=== PATIENT | female | born 1965 | race Caucasian/White ===

== ENCOUNTER → 2016-07-20 | Outpatient (CLI) | payer BC ==
[~2016-07-20] MED LIST: /WARF5TA OR; /WARF5TA PO; ACET500C PO; ALLE25CA OR; AMBI10TA PO; BACT800T OR; CIPR500T19; CIPR500T19 OR; CIPR500T4 OR; CLAR5CHW OR; CLARITIN PO; COLA100C2 OR; COUMADIN; DICY20TA2; DIFL150T; DIFL150T OR; DIOV320T OR; DIOV80TA; DIOV80TA PO; ENOX40SY SC; FLAG500T; FLAG500T OR; FLUC10TA OR; FURO40TA2 OR; GUAIFENESIN SYRUP; HYDR25TA6 OR; JANUMET PO; LOPERAMIDE PO; LOVENOX SQ; PAXI20TA; PAXI20TA PO; PERC5TAB8 OR; PERC7.5T8 OR; SILVADENE TOP; VICO5TAB; VITA50TA12 OR; WOMENS ONE A DAY PO
[2016-07-20 11:58] LABS: BASO # 0.1 K/mm3 (0.0-0.2); EOS # 0.1 K/mm3 (0.0-0.50); EOS % 2.3 % (0.0-3.0); LARGE UNSTAINED CELL # 0.1 K/mm3 (0.0-0.4); LARGE UNSTAINED CELL % 1.7 % (0.0-4.0); LYMPH # 1.8 K/mm3 (1.5-4.5); LYMPH % 30.4 % (24.0-44.0); MEAN CORPUSCULAR HEMOGLOBIN 31.1 pg (27.0-33.0); MEAN CORPUSCULAR HGB CONC 34.6 g/dl (32.0-36.5); MEAN CORPUSCULAR VOLUME 90.1 fl (80.0-96.0); MONO # 0.3 K/mm3 (0.0-0.8); MONO % 5.8 % (0.0-5.0); NEUTROPHILS # 3.4 K/mm3 (1.8-7.7); NEUTROPHILS % 58.8 % (36.0-66.0); PLATELET COUNT, AUTOMATED 324 k/mm3 (150-450); RED CELL DISTRIBUTION WIDTH 12.4 % (11.5-14.5); WHITE BLOOD COUNT 5.8 K/mm3 (4.0-10.0)
[2016-07-20 12:27] LABS: ALBUMIN 3.6 GM/DL (3.2-5.2); ALKALINE PHOSPHATASE 103 U/L (45-117); ALT/SGPT 30 U/L (12-78); ANION GAP 4 MEQ/L (8-16); AST/SGOT 20 U/L (15-37); BILIRUBIN,TOTAL 0.3 MG/DL (0.2-1.0); BLOOD UREA NITROGEN 13 MG/DL (7-18); CALCIUM LEVEL 8.4 MG/DL (8.5-10.1); CARBON DIOXIDE LEVEL 32 MEQ/L (21-32); CHLORIDE LEVEL 106 MEQ/L (98-107); CREATININE FOR GFR 0.66 MG/DL (0.55-1.02); FERRITIN 16 NG/ML (8-252); GLOMERULAR FILTRATION RATE > 60.0 (>51); GLUCOSE, FASTING 87 MG/DL (70-105); MAGNESIUM LEVEL 2.1 MG/DL (1.8-2.4); PERCENT SATURATION 15.3 % (13.2-37.4); PHOSPHORUS LEVEL 3.8 MG/DL (2.5-4.9); POTASSIUM SERUM 4.2 MEQ/L (3.5-5.1); SODIUM LEVEL 142 MEQ/L (136-145); TOTAL IRON BINDING CAPACITY 417 UG/DL (250-450); TOTAL PROTEIN 7.2 GM/DL (6.4-8.2)
[2016-07-21 11:00] LABS: VITAMIN B12 LEVEL 1005 PG/ML (247-911)
[2016-07-22 11:44] LABS: PRETREATED FOLATE FOR RBCFOL 11.8 NG/ML
== END ==
LOC: M LAB 11:10
PROVIDERS: ATTEND Surgery
DX: K91.2 Postsurgical malabsorption, not elsewhere classified (principal); E55.9 Vitamin D deficiency, unspecified; Z98.84 Bariatric surgery status

== ENCOUNTER → 2016-07-20 | Outpatient (CLI) | payer BC ==
[2016-07-20 12:05] LABS: INR 1.01
[2016-07-20 12:06] LABS: MEAN CORPUSCULAR HEMOGLOBIN 31.5 pg (27.0-33.0); MEAN CORPUSCULAR HGB CONC 34.7 g/dl (32.0-36.5); MEAN CORPUSCULAR VOLUME 90.7 fl (80.0-96.0); RED CELL DISTRIBUTION WIDTH 12.4 % (11.5-14.5); WHITE BLOOD COUNT 5.6 K/mm3 (4.0-10.0)
--- NOTE | 2016-07-20 12:13 | REP ---
PA and lateral chest: Comparison is 07/12/2014. The lung santos are clear. The cardiac size is normal The faith, mediastinum, and bony thorax are unremarkable except for mild scoliosis convex right, unchanged. Impression: Essentially negative PA and lateral chest. Signed by Roger Gamble MD 07/20/2016 12:05 P
[2016-07-20 12:29] LABS: ALKALINE PHOSPHATASE 100 U/L (45-117); ALT/SGPT 28 U/L (12-78); ANION GAP 5 MEQ/L (8-16); AST/SGOT 21 U/L (15-37); BILIRUBIN,TOTAL 0.3 MG/DL (0.2-1.0); BLOOD UREA NITROGEN 14 MG/DL (7-18); CALCIUM LEVEL 8.3 MG/DL (8.5-10.1); CARBON DIOXIDE LEVEL 31 MEQ/L (21-32); CHLORIDE LEVEL 105 MEQ/L (98-107); CHOLESTEROL LEVEL 151 MG/DL (<200); CREATININE FOR GFR 0.64 MG/DL (0.55-1.02); GLOMERULAR FILTRATION RATE > 60.0 (>51); GLUCOSE, FASTING 89 MG/DL (70-105); POTASSIUM SERUM 4.4 MEQ/L (3.5-5.1); SODIUM LEVEL 141 MEQ/L (136-145); TRIGLYCERIDES LEVEL 77 MG/DL (<150)
[2016-07-20 12:30] LABS: ALBUMIN 3.5 GM/DL (3.2-5.2); PERCENT SATURATION 16.3 % (13.2-37.4); THYROXINE (T4) 10.8 UG/DL (4.5-12.0); TOTAL IRON BINDING CAPACITY 406 UG/DL (250-450)
--- NOTE | 2016-07-20 16:10 | ECGEPIP ---
Stationary ECG Study [facility] Test Date: 2016-07-20 Pat Name: CESAR CALVILLO Department: Room: - Gender: F Nuclear Medicine Technician: JUAQUIN : 1965 Requested By: Crista Orozco Order Number: [id number] Reading MD: Hugo Bardales Measurements Intervals [place] Rate: 52 P: 23 DE: 197 QRS: 31 QRSD: 94 T: 44 QT: 445 QTc: 416 Interpretive Statements SINUS BRADYCARDIA Electronically Signed On 07-20-2016 16:09:57 EDT by Hugo Bardales
[2016-07-21 10:57] LABS: VITAMIN B12 LEVEL 1077 PG/ML (247-911)
== END ==
LOC: M LAB 11:14
PROVIDERS: ATTEND Family Medicine
DX: D64.9 Anemia, unspecified (principal); R53.83 Other fatigue; E03.9 Hypothyroidism, unspecified

== ENCOUNTER 2016-09-11 08:01 | Emergency (ER) | payer BC ==
[~2016-09-11] VITALS: Ht 167.6 cm; Wt 81.8 kg
[2016-09-11] MEDS ORDERED: VITA200038 PO (08:15)
[2016-09-11] MEDS ORDERED: ELIQ5TAB PO (08:15)
--- NOTE | 2016-09-11 09:38 | REP ---
LUMBAR SPINE, FIVE VIEWS: HISTORY: Trauma. There is no acute fracture or subluxation. The L3-4 through L5-S1 intervertebral discs are decreased in height consistent with disc degeneration. Osteophytes are present on L3 through L5. The facet joints are normal in appearance. IMPRESSION: Degenerative change as described above. Signed by Tian Machuca MD 09/11/2016 09:39 A
[2016-09-11] MEDS ORDERED: OXYC1TAB23 PO (10:40)
[2016-09-11] MEDS ORDERED: ZANA4TAB PO (10:41)
[2016-09-11] MEDS ORDERED: PERCOCET 5MG/325MG TAB PO ONE (10:45)
[2016-09-11 10:50] VITALS: BP 124/70
== END 2016-09-11 10:57 | disposition home or self-care (01) ==
LOC: M ED 08:59
DX: M47.816 Spondylosis without myelopathy or radiculopathy, lumbar region (principal); F41.9 Anxiety disorder, unspecified; F33.9 Major depressive disorder, recurrent, unspecified; D64.9 Anemia, unspecified; K44.9 Diaphragmatic hernia without obstruction or gangrene; Z98.84 Bariatric surgery status; Z79.899 Other long term (current) drug therapy; Z79.01 Long term (current) use of anticoagulants; Z88.2 Allergy status to sulfonamides; Z88.8 Allergy status to other drugs, medicaments and biological substances
CPT/HCPCS: 72110; 96372; 99283; J3360

== ENCOUNTER → 2017-08-03 | Outpatient (CLI) | payer BC ==
[2017-08-03 17:45] LABS: TOTAL 25(OH) VITAMIN D 17.8 NG/ML (30.0-100.0); TOTAL T3 100.9 NG/DL (60.0-181.0); VITAMIN B12 LEVEL 463 PG/ML (247-911)
[2017-08-03 17:55] LABS: ESTIMATED AVERAGE GLUCOSE 111 MG/DL (60-110); HEMOGLOBIN A1c 5.5 %
[2017-08-03 18:06] LABS: ALBUMIN 3.9 GM/DL (3.2-5.2); ALBUMIN/GLOBULIN RATIO 1.05 (1.00-1.93); ALKALINE PHOSPHATASE 105 U/L (45-117); ALT/SGPT 34 U/L (12-78); ANION GAP 5 MEQ/L (8-16); AST/SGOT 25 U/L (7-37); BILIRUBIN,TOTAL 0.5 MG/DL (0.2-1.0); BLOOD UREA NITROGEN 12 MG/DL (7-18); CALCIUM LEVEL 9.2 MG/DL (8.5-10.1); CARBON DIOXIDE LEVEL 32 MEQ/L (21-32); CHLORIDE LEVEL 106 MEQ/L (98-107); CHOLESTEROL LEVEL 171 MG/DL (<200); CHOLESTEROL RISK RATIO 3.352 (<5); GLOMERULAR FILTRATION RATE > 60.0 (>51); GLUCOSE, FASTING 88 MG/DL (70-100); HDL CHOLESTEROL 51 MG/DL (>40); IRON (FE) 66 UG/DL (50-170); LDL CHOLESTEROL 101.4 MG/DL (<100); NON-HDL-C 120 MG/DL; PERCENT SATURATION 16.3 % (13.2-45.0); POTASSIUM SERUM 4.2 MEQ/L (3.5-5.1); SODIUM LEVEL 143 MEQ/L (136-145); THYROID STIMULATING HORMONE 0.882 uIU/ML (0.358-3.740); THYROXINE (T4) 12.5 UG/DL (4.5-12.0); TOTAL IRON BINDING CAPACITY 406 UG/DL (250-450); TOTAL PROTEIN 7.6 GM/DL (6.4-8.2); TRIGLYCERIDES LEVEL 93 MG/DL (<150)
[2017-08-03 18:43] LABS: HEMATOCRIT 39.6 % (36.0-47.0); HEMOGLOBIN 13.2 g/dl (12.0-15.5); MEAN CORPUSCULAR HEMOGLOBIN 29.6 pg (27.0-33.0); MEAN CORPUSCULAR HGB CONC 33.3 g/dl (32.0-36.5); MEAN CORPUSCULAR VOLUME 88.8 fl (80.0-96.0); PLATELET COUNT, AUTOMATED 326 10^3/uL (150-450); RED BLOOD COUNT 4.46 10^6/uL (4.00-5.40); RED CELL DISTRIBUTION WIDTH 12.4 % (11.5-14.5); WHITE BLOOD COUNT 7.4 10^3/uL (4.0-10.0)
[2017-08-03 18:50] LABS: INR 0.96; PROTHROMBIN TIME 12.9 SECONDS (12.4-14.5)
== END ==
LOC: M LAB 16:06
DX: I10 Essential (primary) hypertension (principal); E11.9 Type 2 diabetes mellitus without complications; R53.83 Other fatigue; E03.9 Hypothyroidism, unspecified
CPT/HCPCS: 83550

== ENCOUNTER → 2017-11-18 | Outpatient (CLI) | payer BC | LOC: M RAD 14:57 | DX: N85.8 Other specified noninflammatory disorders of uterus (principal) | CPT/HCPCS: 76856 ==

== ENCOUNTER 2019-03-20 13:16 | Emergency (ER) | payer OTHER ==
[~2019-03-20] VITALS: Ht 165.1 cm; Wt 97.7 kg
[~2019-03-20 13:16] MED LIST changes: -/WARF5TA OR; -/WARF5TA PO; +COUM1TAB17 OR; +COUM1TAB17 PO; +ELIQ5TAB PO; -ENOX40SY SC; +LOVE1INJ SC; +OXYC1TAB23 PO; +VITA200038 PO; +ZANA4TAB PO
[2019-03-20] MEDS ORDERED: MORPHINE 4 MG/ML 1ML VIAL/SYRINGE (J2270) IV ONE ×2 (13:45→15:00)
[2019-03-20 13:50] LABS: BASO # 0.1 10^3/uL (0.0-0.2); BASO % 1.1 % (0.0-1.0); EOS # 0.1 10^3/uL (0.0-0.5); EOS % 1.3 % (0.0-3.0); HEMATOCRIT 42.2 % (36.0-47.0); HEMOGLOBIN 13.6 g/dl (12.0-15.5); LYMPH # 1.8 10^3/uL (1.5-5.0); LYMPH % 24.2 % (24.0-44.0); MEAN CORPUSCULAR HEMOGLOBIN 29.6 pg (27.0-33.0); MEAN CORPUSCULAR HGB CONC 32.2 g/dl (32.0-36.5); MEAN CORPUSCULAR VOLUME 91.7 fl (80.0-96.0); MONO # 0.6 10^3/uL (0.0-0.8); MONO % 8.2 % (0.0-5.0); NEUTROPHILS # 4.8 10^3/uL (1.5-8.5); NEUTROPHILS % 65.1 % (36.0-66.0); PLATELET COUNT, AUTOMATED 356 10^3/uL (150-450); WHITE BLOOD COUNT 7.4 10^3/uL (4.0-10.0)
[2019-03-20 14:04] LABS: INR 1.1; PROTHROMBIN TIME 13.9 SECONDS (11.8-14.0)
[2019-03-20 14:05] LABS: PARTIAL THROMBOPLASTIN TIME 27.5 SECONDS (25.0-38.4)
[2019-03-20 14:23] LABS: ALBUMIN 3.7 GM/DL (3.2-5.2); ALT/SGPT 28 U/L (12-78); BILIRUBIN,DIRECT < 0.1 MG/DL (0.0-0.2); BILIRUBIN,TOTAL 0.2 MG/DL (0.2-1.0); BLOOD UREA NITROGEN 15 MG/DL (7-18); CALCIUM LEVEL 8.6 MG/DL (8.5-10.1); CARBON DIOXIDE LEVEL 28 MEQ/L (21-32); CHLORIDE LEVEL 107 MEQ/L (98-107); CREATININE FOR GFR 0.65 MG/DL (0.55-1.30); GLOMERULAR FILTRATION RATE > 60.0 (>51); GLUCOSE, FASTING 93 MG/DL (70-100); LIPASE 58 U/L (73-393); SODIUM LEVEL 141 MEQ/L (136-145); TOTAL PROTEIN 7.4 GM/DL (6.4-8.2)
[2019-03-20 14:26] LABS: CK-MB VALUE MASS < 1.0 NG/ML (<3.6); CPK CREATINE PHOSPHOKINASE 54 U/L (26-192); MB/CK RELATIVE INDEX 1.85 (< OR =4); TROPONIN I < 0.02 NG/ML (< 0.10)
[2019-03-20] MEDS ORDERED: ISOVUE-370 76% 100ML VIAL (Q9967) As Ordered ONE (14:41)
[2019-03-20] MEDS ORDERED: PERC5TAB12 PO (15:44)
[2019-03-20 16:01] VITALS: BP 147/71
--- NOTE | 2019-03-21 08:27 | REP ---
REASON: Right sided trauma. PRIORS: Multiple, the latest 02/14/2014. The mediastinum and pulmonary faith are within normal limits. There are no pleural or pericardial effusions. Bone window technique throughout the exam shows the osseous structures to be within normal limits. Spinal degenerative changes are noted. Evaluation of the lung santos shows no new abnormal nodules, masses, or opacities. IMPRESSION:CT examination of the chest is within normal limits. Electronically Signed by Priyank Yeager DO 03/25/2019 04:30 P
--- NOTE | 2019-03-21 08:31 | ECGEPIP ---
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
--- NOTE | 2019-03-21 08:50 | REP ---
REASON FOR EXAM: Right upper quadrant pain after trauma. COMPARISON: Multiple, the latest 08/08/2015. CONTRAST: 100 mL Isovue 370. The liver and spleen are again seen to be within normal limits. There is cholelithiasis status quo. The pancreas, adrenal glands, and kidneys are again seen to be within normal limits. The abdominal aorta and para-aortic regions are within normal limits. The bowel loops and their mesenteries are within normal limits. There is no free fluid or free air. Status post left upper quadrant operative procedure likely previous bariatric surgery. CT PELVIS: The bowel loops and their mesenteries are within normal limits. There is no mass or adenopathy. There is no free fluid or free air. Bone window technique throughout the exam shows the osseous structures to be within normal limits. IMPRESSION: CT findings are within normal limits. Electronically Signed by Priyank Yeager DO 03/25/2019 04:32 P
== END 2019-03-20 16:06 | disposition home or self-care (01) ==
LOC: M ED 13:16
DX: S30.1XXA Contusion of abdominal wall, initial encounter (principal); S20.219A Contusion of unspecified front wall of thorax, initial encounter; W10.9XXA Fall (on) (from) unspecified stairs and steps, initial encounter; Y92.9 Unspecified place or not applicable; Y93.9 Activity, unspecified; Y99.0 Civilian activity done for income or pay; R00.1 Bradycardia, unspecified; E11.9 Type 2 diabetes mellitus without complications; E66.9 Obesity, unspecified; Z98.84 Bariatric surgery status; Z86.718 Personal history of other venous thrombosis and embolism; Z88.1 Allergy status to other antibiotic agents; Z88.2 Allergy status to sulfonamides
CPT/HCPCS: 71260; 74177; 80048; 80076; 82550; 82553; 83690; 84484; 85025; 85610; 85730; 93005; 93041; 96374; 96376; 99284; J2270; Q9967

== ENCOUNTER 2019-09-13 13:29 | Emergency (ER) | payer OTHER ==
[~2019-09-13] VITALS: Ht 167.6 cm; Wt 103.4 kg
[~2019-09-13 13:29] MED LIST changes: +PERC5TAB12 PO
[2019-09-13] MEDS ORDERED: GABA600T4 OR (13:40)
[2019-09-13] MEDS ORDERED: TRIA37.53 OR (13:40)
[2019-09-13] MEDS ORDERED: AMPICILLIN SOD/SULBACTAM SOD 3 GM in D5W MINI-BAG PLUS 100 ML IV ONE (14:00)
--- NOTE | 2019-09-13 14:14 | REP ---
Clinical: Trauma. Cat bite. Rule out foreign body. Technique: AP, lateral views right hand . Findings: The osseous structures and joint spaces are intact and normal. There is no evidence for acute fracture or dislocation. Surrounding soft tissues are unremarkable. No subcutaneous emphysema or radiodense foreign body. Impression: No subcutaneous emphysema or foreign body. Electronically Signed by Andrew Ospina MD 09/13/2019 02:06 P
[2019-09-13] MEDS ORDERED: BOOSTRIX/ADACEL VACCINE (DIPHTH/PERTUSS/ACELL/TETANUS) 0.5ML SYR IM ONE (14:15)
[2019-09-13 14:20] LABS: BASO # 0.1 10^3/uL (0.0-0.2); BASO % 0.9 % (0.0-1.0); EOS # 0.1 10^3/uL (0.0-0.5); EOS % 1.4 % (0.0-3.0); HEMATOCRIT 40.4 % (36.0-47.0); HEMOGLOBIN 13.4 g/dl (12.0-15.5); LYMPH # 2.1 10^3/uL (1.5-5.0); LYMPH % 27.1 % (24.0-44.0); MEAN CORPUSCULAR HEMOGLOBIN 30.5 pg (27.0-33.0); MEAN CORPUSCULAR HGB CONC 33.2 g/dl (32.0-36.5); MONO # 0.7 10^3/uL (0.0-0.8); MONO % 8.7 % (0.0-5.0); NEUTROPHILS # 4.8 10^3/uL (1.5-8.5); NEUTROPHILS % 61.5 % (36.0-66.0); PLATELET COUNT, AUTOMATED 330 10^3/uL (150-450); RED BLOOD COUNT 4.39 10^6/uL (4.00-5.40); WHITE BLOOD COUNT 7.7 10^3/uL (4.0-10.0)
[2019-09-13] MEDS ORDERED: diphenhydrAMINE 50MG/ML VIAL (J1200) As Ordered ONE (14:32)
[2019-09-13] MEDS ORDERED: diphenhydrAMINE 50MG/ML VIAL (J1200) IV ONE (14:45)
[2019-09-13 14:55] LABS: ERYTHROCYTE SEDIMENTATION RATE 44 mm/hr (0-30)
[2019-09-13] MEDS ORDERED: CIPROFLOXACIN 400 MG in IV 1 EA IV ONE (15:30)
[2019-09-13] MEDS ORDERED: metroNIDAZOLE (FLAGYL) 500 MG TAB PO ONE (15:30)
[2019-09-13] MEDS ORDERED: FLAG500T PO (16:40)
[2019-09-13] MEDS ORDERED: CIPR-249 PO (16:40)
[2019-09-13 16:52] VITALS: BP 129/82
== END 2019-09-13 16:52 | disposition home or self-care (01) ==
LOC: M ED 13:29
DX: S61.431A Puncture wound without foreign body of right hand, initial encounter (principal); W55.01XA Bitten by cat, initial encounter; Y92.018 Other place in single-family (private) house as the place of occurrence of the external cause; Z79.899 Other long term (current) drug therapy; Z79.01 Long term (current) use of anticoagulants; Z88.1 Allergy status to other antibiotic agents; Z88.2 Allergy status to sulfonamides; Z88.8 Allergy status to other drugs, medicaments and biological substances
CPT/HCPCS: 73120; 80047; 85025; 85652; 86140; 90471; 90715; 96365; 96367; 96375; 99284; J0744; J1200

== ENCOUNTER → 2019-10-28 | Outpatient (CLI) | payer OTHER ==
[~2019-10-28] MED LIST changes: +CIPR-249 PO; +FLAG500T PO; +GABA600T4 OR; +TRIA37.53 OR
--- NOTE | 2019-11-21 08:12 | REPMRS ---
Patient History The patient states she has not had a clinical breast exam in over a year. Family history of breast cancer in maternal aunt, breast cancer in maternal aunt, breast cancer in maternal aunt. No Hormone Replacement Therapy Digital Woman Screen Mammo: October 28, 2019 - Exam #: [id number] Bilateral CC and MLO view(s) were taken. Technologist: Vania Purdy, Technologist Prior study comparison: October 19, 2018, bilateral digital woman screen mammo performed at [facility]. August 13, 2015, digital woman screen mammo performed at [facility]. September 07, 2009, bilateral screening mammogram performed at [facility]. FINDINGS: There are scattered fibroglandular densities. The Volpara volumetric breast density category is:B. There has been no change in the appearance of the mammogram from the prior studies. There is a mild amount of scattered fibroglandular density which is fairly symmetric. There is no interval development of dominant mass, architectural distortion, or grouped microcalcification suggestive of malignancy. 3-D tomosynthesis shows no additional findings. Report was delayed due to a protracted computer network disruption experienced by this facility. Assessment: BI-RADS/ACR category 1 mammogram. Negative Mammogram. Recommendation Routine screening mammogram of both breasts in 1 year (for women over age 40). This patient's Lifetime Breast Cancer Risk is estimated at 13.1 %. This mammogram was interpreted with the aid of an FDA-approved computer-aided dectection system. Electronically Signed By: Marcos Giraldo MD 11/21/19 [id number]
== END ==
LOC: M WHC 12:09
PROVIDERS: ATTEND Family Medicine
DX: Z12.31 Encounter for screening mammogram for malignant neoplasm of breast (principal)

== ENCOUNTER → 2019-12-27 | Outpatient (CLI) | payer OTHER ==
[2019-12-27 13:58] LABS: HEMATOCRIT 39.9 % (36.0-47.0); MEAN CORPUSCULAR HEMOGLOBIN 29.1 pg (27.0-33.0); MEAN CORPUSCULAR HGB CONC 32.6 g/dl (32.0-36.5); MEAN CORPUSCULAR VOLUME 89.5 fl (80.0-96.0); PLATELET COUNT, AUTOMATED 344 10^3/uL (150-450); RED BLOOD COUNT 4.46 10^6/uL (4.00-5.40); WHITE BLOOD COUNT 6.2 10^3/uL (4.0-10.0)
[2019-12-27 14:19] LABS: HEMOGLOBIN A1c 5.6 %
[2019-12-27 14:31] LABS: ALBUMIN 3.7 GM/DL (3.2-5.2); BILIRUBIN,TOTAL 0.4 MG/DL (0.2-1.0); BLOOD UREA NITROGEN 18 MG/DL (7-18); CALCIUM LEVEL 8.9 MG/DL (8.5-10.1); CARBON DIOXIDE LEVEL 30 MEQ/L (21-32); CHLORIDE LEVEL 107 MEQ/L (98-107); CHOLESTEROL LEVEL 164 MG/DL (<200); CHOLESTEROL RISK RATIO 3.416 (<5); GLOMERULAR FILTRATION RATE > 60.0 (>51); GLUCOSE, FASTING 88 MG/DL (70-100); HDL CHOLESTEROL 48 MG/DL (>40); IRON (FE) 76 UG/DL (50-170); LDL CHOLESTEROL 99 MG/DL (<100); NON-HDL-C 116 MG/DL; PERCENT SATURATION 18.6 % (13.2-45.0); POTASSIUM SERUM 4.1 MEQ/L (3.5-5.1); SODIUM LEVEL 140 MEQ/L (136-145); THYROID STIMULATING HORMONE 0.927 uIU/ML (0.358-3.740); THYROXINE (T4) 11.9 UG/DL (4.5-12.0); TOTAL IRON BINDING CAPACITY 409 UG/DL (250-450); TOTAL PROTEIN 7.2 GM/DL (6.4-8.2); TRIGLYCERIDES LEVEL 84 MG/DL (<150)
[2019-12-27 18:00] LABS: ALT/SGPT 36 U/L (12-78)
[2019-12-28 13:57] LABS: TOTAL 25(OH) VITAMIN D 28.4 NG/ML (30.0-100.0)
[2019-12-28 13:58] LABS: TOTAL T3 108.3 NG/DL (60.0-181.0); VITAMIN B12 LEVEL 443 PG/ML
[2019-12-28 14:29] LABS: FOLATE 11.1 NG/ML
== END ==
LOC: M LAB 12:54
PROVIDERS: ATTEND Family Medicine
DX: E03.9 Hypothyroidism, unspecified (principal); R53.83 Other fatigue; D64.9 Anemia, unspecified

== ENCOUNTER 2020-03-04 08:21 | Emergency (ER) | payer OTHER ==
[~2020-03-04] VITALS: Ht 165.1 cm; Wt 100.0 kg
[2020-03-04] MEDS ORDERED: CEPH500C (08:32)
[2020-03-04] MEDS ORDERED: DICY20TA11 (08:32)
[2020-03-04 09:32] LABS: BASO # 0.1 10^3/uL (0.0-0.2); BASO % 0.8 % (0.0-1.0); EOS # 0.1 10^3/uL (0.0-0.5); EOS % 1.7 % (0.0-3.0); HEMATOCRIT 38.9 % (36.0-47.0); HEMOGLOBIN 12.5 g/dl (12.0-15.5); LYMPH # 1.7 10^3/uL (1.5-5.0); LYMPH % 28.5 % (24.0-44.0); MEAN CORPUSCULAR HEMOGLOBIN 28.7 pg (27.0-33.0); MEAN CORPUSCULAR HGB CONC 32.1 g/dl (32.0-36.5); MEAN CORPUSCULAR VOLUME 89.4 fl (80.0-96.0); MONO # 0.6 10^3/uL (0.0-0.8); MONO % 9.1 % (0.0-5.0); NEUTROPHILS # 3.6 10^3/uL (1.5-8.5); NEUTROPHILS % 59.6 % (36.0-66.0); PLATELET COUNT, AUTOMATED 273 10^3/uL (150-450); RED BLOOD COUNT 4.35 10^6/uL (4.00-5.40)
[2020-03-04 09:44] LABS: INR 1.12; PROTHROMBIN TIME 14.7 SECONDS (12.5-14.3)
[2020-03-04 09:45] LABS: PARTIAL THROMBOPLASTIN TIME 31.6 SECONDS (24.2-38.5)
[2020-03-04 09:54] LABS: ERYTHROCYTE SEDIMENTATION RATE 22 mm/hr (0-30)
[2020-03-04 09:58] LABS: ALBUMIN 3.6 GM/DL (3.2-5.2); ALT/SGPT 36 U/L (12-78); BILIRUBIN,DIRECT 0.1 MG/DL (0.0-0.2); BILIRUBIN,TOTAL 0.3 MG/DL (0.2-1.0); BLOOD UREA NITROGEN 13 MG/DL (7-18); CALCIUM LEVEL 8.7 MG/DL (8.5-10.1); CARBON DIOXIDE LEVEL 30 MEQ/L (21-32); CHLORIDE LEVEL 109 MEQ/L (98-107); CREATININE FOR GFR 0.72 MG/DL (0.55-1.30); GLOMERULAR FILTRATION RATE > 60.0 (>51); GLUCOSE, FASTING 95 MG/DL (70-100); RHEUMATOID FACTOR QUANT < 10.0 IU/ML (<15.0); SODIUM LEVEL 142 MEQ/L (136-145)
[2020-03-04] MEDS ORDERED: CLIN150C14 PO (11:23)
[2020-03-04] MEDS ORDERED: CEFD1CAP8 PO (11:23)
[2020-03-04] MEDS ORDERED: CLINDAMYCIN 150MG CAPSULE PO ONE (11:30)
[2020-03-04] MEDS ORDERED: CEFDINIR 300 MG CAP (OMNICEF) PO ONE (11:30)
[2020-03-04 11:31] VITALS: BP 162/84
[2020-03-06 16:13] LABS: ANTINUCLEAR ANTIBODIES DIRECT Negative (Negative)
[2020-03-07 11:32] LABS: PTT LUPUS TYPE ANTICOAG SCREEN 1.3 (0-1.2)
[2020-03-07 11:40] LABS: DRVV CONFIRM 56.7 SEC; LUPUS CONFIRM RATIO 1.5
[2020-03-07 11:47] LABS: NORMALIZED RATIO 0.87 (0.00-1.20)
== END 2020-03-04 11:37 | disposition home or self-care (01) ==
LOC: M ED 08:21
DX: L30.9 Dermatitis, unspecified (principal); L03.213 Periorbital cellulitis; E11.9 Type 2 diabetes mellitus without complications; F33.9 Major depressive disorder, recurrent, unspecified; F41.9 Anxiety disorder, unspecified; Z98.84 Bariatric surgery status; Z79.899 Other long term (current) drug therapy; Z79.01 Long term (current) use of anticoagulants; Z88.0 Allergy status to penicillin; Z88.1 Allergy status to other antibiotic agents; Z88.2 Allergy status to sulfonamides; Z88.8 Allergy status to other drugs, medicaments and biological substances

== ENCOUNTER → 2020-04-18 | Outpatient (CLI) | payer OTHER ==
[~2020-04-18] MED LIST changes: +ACET1TAB16 PO; +CEFD1CAP8 PO; +CEPH500C; +CLIN150C15 PO; +DICY20TA11; +VITA50005
[2020-04-18 15:40] LABS: IMMUNOGLOBULIN E 60.6 IU/ML (<100)
[2020-04-21 16:09] LABS: ALPHA 1 ANTITRYPSIN 110 mg/dL (101-187); D001-IgE D pteronyssinus <0.10 kU/L (Class 0); E001-IgE Cat Epith/Dander < 0.10 kU/L (Class 0); E003-IGE HORSE EPITHELIA/DAND <0.10 kU/L (Class 0); E004-IGE COW DANDER <0.10 kU/L (Class 0); E005-IgE Dog Dander < 0.10 kU/L (Class 0); F002-IgE Milk < 0.10 kU/L (Class 0); F004-IgE Wheat < 0.10 kU/L (Class 0); F013-IgE Peanut < 0.10 kU/L (Class 0); F014-IgE Soybean < 0.10 kU/L (Class 0); F026-IgE Pork < 0.10 kU/L (Class 0); F027-IgE Beef < 0.10 kU/L (Class 0); F245-IgE Egg, Whole < 0.10 kU/L (Class 0); FX02-IgE Food Mix (Sea Foods) Negative (.); G002-IgE Bermuda Grass < 0.10 kU/L (Class 0); G008-IgE Kentucky Bluegrass < 0.10 kU/L (Class 0); M001-IgE Penicillium chrysogen < 0.10 kU/L (Class 0); M002 IgE Cladosporium herbaru < 0.10 kU/L (Class 0); M003 IgE Aspergillus fumigatu < 0.10 kU/L (Class 0); M006-IgE Alternaria alternata < 0.10 kU/L (Class 0); T001-IgE Maple/Box Elder < 0.10 kU/L (Class 0); T003-IgE Common Silver Birch < 0.10 kU/L (Class 0); T006-IgE Cedar, Mountain < 0.10 kU/L (Class 0); T007-IgE Oak, White < 0.10 kU/L (Class 0); T008-IgE Elm, American < 0.10 kU/L (Class 0); T015-IgE Ash, White < 0.10 kU/L (Class 0); T041-IgE Hickory, White < 0.10 kU/L (Class 0); T070-IgE White Mulberry < 0.10 kU/L (Class 0); W001-IgE Ragweed, Short < 0.10 kU/L (Class 0); W009-IgE Plantain, English < 0.10 kU/L (Class 0); W014-IgE Pigweed, Rough < 0.10 kU/L (Class 0); W018-IgE Sheep Sorrel < 0.10 kU/L (Class 0)
== END ==
LOC: M LAB 11:05
PROVIDERS: ATTEND Nurse Practitioner Family
DX: J30.2 Other seasonal allergic rhinitis (principal)

== ENCOUNTER 2020-04-24 17:24 | Emergency (ER) | payer OTHER ==
[~2020-04-24] VITALS: Ht 167.6 cm; Wt 105.2 kg
[~2020-04-24 17:24] MED LIST changes: -ACET1TAB16 PO; -VITA50005
--- NOTE | 2020-04-24 18:54 | REPVR ---
PROCEDURE INFORMATION: Exam: US Duplex Right Lower Extremity Veins, Limited Exam date and time: 04/24/2020 6:33 PM Age: 54 years old Clinical indication: Pain; Leg, lower; Right; Additional info: R lower ext swelling, pain, HX of dvt on eliquis TECHNIQUE: Imaging protocol: Real-time Duplex ultrasound of the Right Lower Extremity with 2-D villavicencio scale, color Doppler flow and spectral waveform analysis with image documentation. Limited exam was focused on the right lower extremity veins. COMPARISON: US Duplex, Ext,LOWER veins,unilat 08/25/2013 1:15 PM FINDINGS: Right deep veins: There is a linear area of echogenic thrombus anterior wall of the right common femoral vein consistent with chronic thrombus. There is venous return through this segment. There is a linear echogenic band within the right popliteal vein consistent with an adhesion from chronic thrombus. There is however good venous return. Soft tissues: There is soft tissue swelling. Other findings: Proximal, mid and distal femoral vein demonstrates compressibility a good venous return. 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 No evidence of acute DVT. Electronically signed by: Garret Carcamo On 04/24/2020 18:54:04 PM
[2020-04-24 19:11] VITALS: BP 142/88
[2020-04-25] MEDS ORDERED: VITA50005 (21:23)
== END 2020-04-24 19:13 | disposition home or self-care (01) ==
LOC: M ED 17:24
DX: I82.501 Chronic embolism and thrombosis of unspecified deep veins of right lower extremity (principal); I83.811 Varicose veins of right lower extremity with pain; E11.9 Type 2 diabetes mellitus without complications; Z79.01 Long term (current) use of anticoagulants; Z88.2 Allergy status to sulfonamides; Z88.0 Allergy status to penicillin; Z88.1 Allergy status to other antibiotic agents; Z98.0 Intestinal bypass and anastomosis status; Z98.890 Other specified postprocedural states

== ENCOUNTER 2020-04-25 21:14 | Emergency (ER) | payer OTHER ==
[~2020-04-25] VITALS: Ht 167.6 cm; Wt 102.2 kg
--- OUTSIDE RECORDS SUMMARY | 2020-04-25 21:21 | CCD ---
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 Name Role Phone Tashia Freeman MD Unavailable Unavailable Lydia, Tashia Christine MD Unavailable Unavailable Lydia, Tashia Christine MD Unavailable Unavailable Lydia, Tashia Christine MD Unavailable Unavailable Lydia, Tashia Christine MD Unavailable Unavailable Lydia, Tashia Christine MD Unavailable Unavailable Lydia, Tashia Christine MD Unavailable Unavailable Lydia, Tashia Christine MD Unavailable Unavailable Lydia, Tashia Christine MD Unavailable Unavailable Lydia, Tashia Christine MD Unavailable Unavailable Lydia, Tashia Christine MD Unavailable Unavailable Lydia, Tashia Christine MD Unavailable Unavailable Lydia, Tashia Christine MD Unavailable Unavailable Lydia, Tashia Christine MD Unavailable Unavailable Lydia, Tashia Christine MD Unavailable Unavailable Lydia, Tashia Christine MD Unavailable Unavailable Lydia, Tashia Christine MD Unavailable Unavailable Lydia, Tashia Christine MD Unavailable Unavailable Lydia, Tashia Christine MD Unavailable Unavailable Lydia, Tashia Christine MD Unavailable Unavailable Lydia, Tashia Christine MD Unavailable Unavailable Lydia, A Emmett MD Unavailable Unavailable Lydia, A Emmett MD Unavailable Unavailable Lydia, A Emmett MD Unavailable Unavailable Lydia, A Emmett MD Unavailable Unavailable Lydia, A Emmett MD Unavailable Unavailable Lydia, A Emmett MD Unavailable Unavailable Lydia, A Emmett MD Unavailable Unavailable Lydia, A Emmett MD Unavailable Unavailable Lydia, A Emmett MD Unavailable Unavailable Lydia, A Emmett MD Unavailable Unavailable Lydia, A Emmett MD Unavailable Unavailable Lydia, A Emmett MD Unavailable Unavailable Lydia, A Emmett MD Unavailable Unavailable Lydia, A Emmett MD Unavailable Unavailable Lydia, A Emmett MD Unavailable Unavailable Lydia, A Emmett MD Unavailable Unavailable Lydia, A Emmett MD Unavailable Unavailable Lydia, A Emmett MD Unavailable Unavailable Lydia, A Emmett MD Unavailable Unavailable Lydia, A Emmett MD Unavailable Unavailable Lydia, A Emmett MD Unavailable Unavailable Lydia, A Emmett MD Unavailable Unavailable Lydia, A Emmett MD Unavailable Unavailable Lydia, A Emmett MD Unavailable Unavailable Lydia, A Emmett MD Unavailable Unavailable Lydia, A Emmett MD Unavailable Unavailable Lydai, A Emmett MD Unavailable Unavailable Lydia, A Emmett MD Unavailable Unavailable Lydia, A Emmett MD Unavailable Unavailable Lydia, A Emmett MD Unavailable Unavailable Lydia, A Emmett MD Unavailable Unavailable Lydia, A Emmett MD Unavailable Unavailable Ldyia, A Emmett MD Unavailable Unavailable Lydia, A Emmett MD Unavailable Unavailable Lydia, A Emmett MD Unavailable Unavailable Lydia, A Emmett MD Unavailable Unavailable Lydia, A Emmett MD Unavailable Unavailable Lydia, A Emmett MD Unavailable Unavailable Lydia, A Emmett MD Unavailable Unavailable Lydia, A Emmett MD Unavailable Unavailable Lydia, A Emmett MD Unavailable Unavailable Lydia, A Emmett MD Unavailable Unavailable Lydia, A Emmett MD Unavailable Unavailable Lydia, A Emmett MD Unavailable Unavailable Lydia, A Emmett MD Unavailable Unavailable Lydia, A Emmett MD Unavailable Unavailable Lydia, A Emmett MD Unavailable Unavailable Lydia, A Emmett MD Unavailable Unavailable Lydia, A Emmett MD Unavailable Unavailable Lydia, A Emmett MD Unavailable Unavailable Lydia, A Emmett MD Unavailable Unavailable Lydia, A Emmett MD Unavailable Unavailable Lydia, A Emmett MD Unavailable Unavailable Lydia, A Emmett MD Unavailable Unavailable Lydia, A Emmett MD Unavailable Unavailable Lydia, A Emmett MD Unavailable Unavailable Lydia, A Emmett MD Unavailable Unavailable Lydia, A Emmett MD Unavailable Unavailable Lydia, A Emmett MD Unavailable Unavailable Lydia, A Emmett MD Unavailable Unavailable Lydia, A Emmett MD Unavailable Unavailable Lydia, A Emmett MD Unavailable Unavailable Lydia, A Emmett MD Unavailable Unavailable Lydia, A Emmett MD Unavailable Unavailable Lydia, A Emmett MD Unavailable Unavailable Lydia, A Emmett MD Unavailable Unavailable Lydia, A Emmett MD Unavailable Unavailable Lydia, A Emmett MD Unavailable Unavailable Lydia, A Emmett MD Unavailable Unavailable Lydia, A Emmett MD Unavailable Unavailable Lydia, A Emmett MD Unavailable Unavailable Lydia, A Emmett MD Unavailable Unavailable Lydia, A Emmett MD Unavailable Unavailable Lydia, A Emmett MD Unavailable Unavailable Lydia, A Emmett MD Unavailable Unavailable Lydia, A Emmett MD Unavailable Unavailable Lydia, A Emmett MD Unavailable Unavailable Lydia, A Emmett MD Unavailable Unavailable Lydia, A Emmett MD Unavailable Unavailable Lydia, A Emmett MD Unavailable Unavailable Lydia, A Emmett MD Unavailable Unavailable Lydia, A Emmett MD Unavailable Unavailable Lydia, A Emmett MD Unavailable Unavailable Lydia, A Emmett MD Unavailable Unavailable Lydia, A Emmett MD Unavailable Unavailable Lydia, A Emmett MD Unavailable Unavailable Lydia, A Emmett MD Unavailable Unavailable Lydia, A Emmett MD Unavailable Unavailable Lydia, A Emmett MD Unavailable Unavailable Lydia, A Emmett MD Unavailable Unavailable Lydia, A Emmett MD Unavailable Unavailable [facility], PA-C Unavailable Unavailabl e Fish, [facility], PA-C Unavailable Unavailabl e Fish, [facility], PA-C Unavailable Unavailabl e Fish, [facility], PA-C Unavailable Unavailabl e Fish, [facility], PA-C Unavailable Unavailabl e Fish, [facility], PA-C Unavailable Unavailabl e Fish, [facility], PA-C Unavailable Unavailabl e Fish, [facility], PA-C Unavailable Unavailabl e Fish, [facility], PA-C Unavailable Unavailabl e Fish, [facility], PA-C Unavailable Unavailabl e Fish, [facility], PA-C Unavailable Unavailabl e Fish, [facility], PA-C Unavailable Unavailabl e Fish, [facility], PA-C Unavailable Unavailabl e Fish, [facility], PA-C Unavailable Unavailabl e Fish, [facility], PA-C Unavailable Unavailabl e Fish, [facility], PA-C Unavailable Unavailabl e Fish, [facility], PA-C Unavailable Unavailabl e Fish, [facility], PA-C Unavailable Unavailabl e Fish, [facility], PA-C Unavailable Unavailabl e Fish, [facility], PA-C Unavailable Unavailabl e Fish, [facility], PA-C Unavailable Unavailabl e Fish, [facility], PA-C Unavailable Unavailabl e Fish, [facility], PA-C Unavailable Unavailabl e Fish, [facility], PA-C Unavailable Unavailabl e Fish, [facility], PA-C Unavailable Unavailabl e Fish, [facility], PA-C Unavailable Unavailabl e Fish, [facility], PA-C Unavailable Unavailabl e Fish, [facility], PA-C Unavailable Unavailabl e Fish, [facility], PA-C Unavailable Unavailabl e Fish, [facility], PA-C Unavailable Unavailabl e Fish, [facility], PA-C Unavailable Unavailabl e Fish, [facility], PA-C Unavailable Unavailabl e Fish, [facility], PA-C Unavailable Unavailabl e AAYUSH FOSTER PA Unavailable Unavailable AAYUSH FOSTER PA Unavailable Unavailable AAYUSH FOSTER PA Unavailable Unavailable AAYUSH FOSTER PA Unavailable Unavailable AAYUSH FOSTER PA Unavailable Unavailable AAYUSH FOSTER PA Unavailable Unavailable AAYUSH FOSTER PA Unavailable Unavailable AAYUSH FOSTER PA Unavailable Unavailable AAYUSH FOSTER PA Unavailable Unavailable AAYUSH FOSTER PA Unavailable Unavailable AAYUSH FOSTER PA Unavailable Unavailable AAYUSH FOSTER PA Unavailable Unavailable AAYUSH FOSTER PA Unavailable Unavailable AAYUSH FOSTER PA Unavailable Unavailable AAYUSH FOSTER PA Unavailable Unavailable AAYUSH FOSTER PA Unavailable Unavailable AAYUSH FOSTER PA Unavailable Unavailable CRISTIAN, AAYUSH PA Unavailable Unavailable CRISTIAN, AAYUSH PA Unavailable Unavailable CRISTIAN, AAYUSH PA Unavailable Unavailable CRISTIAN, AAYUSH PA Unavailable Unavailable CRISTIAN, AAYUSH PA Unavailable Unavailable CRISTIAN, AAYUSH PA Unavailable Unavailable CRSITIAN, AAYUSH PA Unavailable Unavailable CRISTIAN, AAYUSH PA Unavailable Unavailable CRISTIAN, AAYUSH PA Unavailable Unavailable CRISTIAN, AAYUSH PA Unavailable Unavailable CRISTIAN, AAYUSH PA Unavailable Unavailable CRISTIAN, AAYUSH PA Unavailable Unavailable CRISTIAN, AAYUSH PA Unavailable Unavailable CRISTIAN, AAYUSH PA Unavailable Unavailable CRISTIAN, AAYUSH PA Unavailable Unavailable CRISTIAN, AAYUSH PA Unavailable Unavailable CRISTIAN, AAYUSH PA Unavailable Unavailable CRISTIAN, AAYUSH PA Unavailable Unavailable CRISTIAN, AAYUSH PA Unavailable Unavailable CRISTIAN, AAYUSH PA Unavailable Unavailable CRISTIAN, AAYUSH PA Unavailable Unavailable Flavio Wade MD Unavailable Unavailable Flavio Wade MD Unavailable Unavailable Flavio Wade MD Unavailable Unavailable Flavio Wade MD Unavailable Unavailable Flavio Wade MD Unavailable Unavailable Flavio Wade MD Unavailable Unavailable Flavio Wade MD Unavailable Unavailable Flavio Wade MD Unavailable Unavailable Flavio Wade MD Unavailable Unavailable Flavio Wade MD Unavailable Unavailable Flavio Wade MD Unavailable Unavailable Flavio Wade MD Unavailable Unavailable Flavio Wade MD Unavailable Unavailable Flavio Wade MD Unavailable Unavailable Flavio Wade MD Unavailable Unavailable Flavio Wade MD Unavailable Unavailable Flavio Wade MD Unavailable Unavailable Flavio Wade MD Unavailable Unavailable Flavio Wade MD Unavailable Unavailable Flavio Wade MD Unavailable Unavailable Flavio Wade MD Unavailable Unavailable Flavio Wade MD Unavailable Unavailable Flavio Wade MD Unavailable Unavailable Flavio Wade MD Unavailable Unavailable Flavio Wade MD Unavailable Unavailable Flavio Wade MD Unavailable Unavailable Flavio Wade MD Unavailable Unavailable Flavio Wade MD Unavailable Unavailable Flavio Wade MD Unavailable Unavailable Flavio Wade MD Unavailable Unavailable Flavio Wade MD Unavailable Unavailable Flavio Wade MD Unavailable Unavailable Zoë Waded Unavailable Unavailable Dariusz Wade Moid Unavailable Unavailable Dariusz Wade Moid Unavailable Unavailable Zoë Waded Unavailable Unavailable Dariusz Wade Moid Unavailable Unavailable Dariusz Wade Moid Unavailable Unavailable Dariusz Wade Moid Unavailable Unavailable Dariusz Wade Moid Unavailable Unavailable Dariusz Wade Moid Unavailable Unavailable Dariusz Wade Moid Unavailable Unavailable Dariusz Wade Moid Unavailable Unavailable Dariusz Wade Moid Unavailable Unavailable Dariusz Wade Moid Unavailable Unavailable Dariusz Wade Moid Unavailable Unavailable Dariusz Wade Moid MD Unavailable Unavailable Dariusz Wade Moid Unavailable Unavailable Dariusz Wade Moid Unavailable Unavailable Dariusz Wade Moid Unavailable Unavailable Dariusz Wade Moid Unavailable Unavailable Dariusz Wade Moid Unavailable Unavailable Dariusz Wade Moid Unavailable Unavailable Dariusz Wade Moid Unavailable Unavailable Dariusz Wade Moid Unavailable Unavailable Dariusz Wade Moid Unavailable Unavailable Dariusz Wade Moid Unavailable Unavailable Dariusz Wade Moid Unavailable Unavailable Dariusz Wade Moid MD Unavailable Unavailable Dariusz Wade Moid Unavailable Unavailable Dariusz Wade Moid Unavailable Unavailable Dariusz Wade Moid Unavailable Unavailable Dariusz Wade Moid Unavailable Unavailable Dariusz Wade Moid Unavailable Unavailable Dariusz Wade Moid Unavailable Unavailable Doremus, E Shaista PA Unavailable Unavailable Doremus, E Shaista PA Unavailable Unavailable Doremus, E Shaista PA Unavailable Unavailable Doremus, E Shaista PA Unavailable Unavailable Doremus, E Shaista PA Unavailable Unavailable Doremus, E Shaista PA Unavailable Unavailable Doremus, E Shaista PA Unavailable Unavailable Doremus, E Shaista PA Unavailable Unavailable Doremus, E Shaista PA Unavailable Unavailable Doremus, E Shaista PA Unavailable Unavailable Doremus, E Shaista PA Unavailable Unavailable Doremus, E Shaista PA Unavailable Unavailable Doremus, E Shaista PA Unavailable Unavailable Doremus, E Shaista PA Unavailable Unavailable Doremus, E Shaista PA Unavailable Unavailable Doremus, E Shaista PA Unavailable Unavailable Doremus, E Shaista PA Unavailable Unavailable Doremus, E Shaista PA Unavailable Unavailable Doremus, E Shaista PA Unavailable Unavailable Re-disclosure Warning The records that you are about to access may contain information from federally-assisted alcohol or drug abuse programs. If such information is present, then the following federally mandated warning applies: This information has been disclosed to you from records protected by federal confidentiality rules (42 CFR part 2). The federal rules prohibit you from making any further disclosure of this information unless further disclosure is expressly permitted by the written consent of the person to whom it pertains or as otherwise permitted by 42 CFR part 2. A general authorization for the release of medical or other information is NOT sufficient for this purpose. The Federal rules restrict any use of the information to criminally investigate or prosecute any alcohol or drug abuse patient.The records that you are about to access may contain highly sensitive health information, the redisclosure of which is protected by Article 27-F of the [facility] Public Health law. If you continue you may have access to information: Regarding HIV / AIDS; Provided by facilities licensed or operated by the [facility] Office of Mental Health; or Provided by the [facility] Office for People With Developmental Disabilities. If such information is present, then the following [facility] mandated warning applies: This information has been disclosed to you from confidential records which are protected by state law. State law prohibits you from making any further disclosure of this information without the specific written consent of the person to whom it pertains, or as otherwise permitted by law. Any unauthorized further disclosure in violation of state law may result in a fine or senior care sentence or both. A general authorization for the release of medical or other information is NOT sufficient authorization for further disc losure. Family History Family Member Name Family Member Gender Family Member Status Date o f Status Description Data Source(s) Unknown Male Problem [facility] ([facility]) Unknown Female Problem [facility] ([facility] Unknown Female Problem [facility] ([facility] Unknown Female Problem [facility] ([facility] Unknown Female Problem [facility] ([facility]) Encounters Encounter Providers Location Date Indications Data Source(s ) Outpatient Attender: Emmett Freeman MD [id number] 04/05/2020 12:00:0 0 AM EST [facility] Outpatient Attender: AAYUSH arthur 02/15/2020 01:15:00 PM EST [facility] ([facility] Outpatient Attender: Amirah PINO PA-C Physical Therapy 01/03/2020 03:30:00 PM EDT [facility] ([facility]) Outpatient Attender: Amirah PINO PA-C Physical Therapy 12/21/2019 01:00:00 PM EDT [facility] ([facility]) Outpatient Attender: Shaista AHN Physical Therapy 01:30:00 PM EDT [facility] ([facility]) Outpatient Referrer: Pam Wade MD 09/23/2019 05:12:00 AM E [facility] Radiology Imaging Outpatient Referrer: Pam Wade MD 04/08/2019 10:19:00 AM E [facility] Radiology Imaging Outpatient Referrer: Pam Wade MD 04/07/2019 02:52:00 PM E [facility] Imaging Medications Medication Brand Name Start Date Product Form Dose Route Admi nistrative Instructions Pharmacy Instructions Status Indications Reaction Description Data Source(s) 5 mg/gram (0.5 %) 03/07/2020 12:00:00 AM EST ointment 3 APPLY SMALL AMOUNT TO BOTH OUTER LIDS TWO TIMES A DAY DIRECTED APPLY SMALL AMOUNT TO BOTH OUTER LIDS TWO TIMES A DAY DIRECTED SOLD: 03/07/2020 [facility] 1 % 03/07/2020 12:00:00 AM EST drops,suspension 10 INSTILL 1 DROP INTO BOTH EYES FOUR TIMES A DAY DIRECTED INSTILL 1 DROP INTO BOTH EYES FOUR TIMES A DAY DIRECTED SOLD: 03/07/2020 [facility] Clindamycin 150 MG Oral Capsule CLINDAMYCIN HCL 03/04/2020 12:00 :00 AM EST capsule 42 TAKE TWO CAPSULES BY MOUTH THREE TIMES A DAY FOR 7 DAYS TAKE TWO CAPSULES BY MOUTH THREE TIMES A DAY FOR 7 DAYS SOLD: 03/04/2020 [facility] 300 mg 03/04/2020 12:00:00 AM EST capsule 14 TAKE ONE CAPSULE BY MOUTH TWICE A DAY FOR 7 DAYS TAKE ONE CAPSULE BY MOUTH TWICE A DAY FOR 7 DAYS SOLD: 03/04/2020 [facility] Cephalexin 500 MG Oral Capsule CEPHALEXIN 02/16/2020 12:00:00 AM EST capsule 40 TAKE ONE CAPSULE BY MOUTH FOUR TIMES A DAY TAKE ONE CA PSULE BY MOUTH FOUR TIMES A DAY SOLD: 02/24/2020 [facility] 5-325 mg 03/20/2019 12:00:00 AM EST tablet 12 TAKE ONE TABLET BY MOUTH EVERY 6 HOURS NEEDED FOR PAIN, MAXIMUM DAILY DOSE = 4 TAKE ONE TABLET BY MOUTH EVERY 6 HOURS NEEDED FOR PAIN, MAXIMUM DAILY DOSE = 4 SOLD: 03/20/2019 [facility] Insurance Providers Payer name Policy type / Coverage type Policy ID Covered republican ID Covered republican's relationship to hurley Policy Hurley Plan Information [facility] [id number] SP [id number] [facility] U [id number] Self [id number] [facility] U [id number] Self [id number] [facility] U [id number] Self [id number] UMR O [id number] S [id number] KACY CLAIM ADMIN WORK COMP SP KACY CLAIM ADMIN WORK O [id number] S [id number] OTHER WORKERS COMPENSATI O [id number] S [id number] [facility] [id number] SP [id number] BS [place] PPO 302/307 [id number] SP [id number] EXCELLUS BS B [id number] S [id number] Bso ZFC,Yot,Yoy,ZFH,ZFP Medigap Part B [id number] Family Dependent [id number] [place] [employer] [id number] Self [id number] Bso ZFC,Yot,Yoy,ZFH,ZFP Medigap Part B [id number] Family Dependent [id number] [place] [employer] [id number] Self [id number] Bso ZFC,Yot,Yoy,ZFH,ZFP Medigap Part B [id number] Family Dependent [id number] [place] [employer] [id number] Self [id number] Bso ZFC,Yot,Yoy,ZFH,ZFP Medigap Part B [id number] Family Dependent [id number] BS [place] [employer] [id number] Self [id number] Bso ZFC,Yot,Yoy,ZFH,ZFP Medigap Part B [id number] Family Dependent [id number] BS [place] [employer] [id number] Self [id number] Bso ZFC,Yot,Yoy,ZFH,ZFP Medigap Part B [id number] Family Dependent [id number] BS [place] [employer] [id number] Self [id number] [employer] [place] PPO 302/307 [id number] SP [id number] Bso ZFC,Yot,Yoy,ZFH,ZFP Medigap Part B [id number] Family Dependent [id number] BS [place] [employer] [id number] Self [id number] [employer] [place] PPO 302/307 [id number] SP [id number] Bso ZFC,Yot,Yoy,ZFH,ZFP Medigap Part B [id number] Family Dependent [id number] BS [place] [employer] [id number] Self [id number] EXCELL[place] BCBS B [id number] S YND [employer]BS [place] PPO 302/307 [id number] SP [id number] [facility] [id number] SP [id number] [employer] O [id number] S [id number] [facility] [id number] SP [id number] [employer] O [id number] S [id number] [facility] [id number] Paulina [id number] [facility] Medigap Part B Self BC/BS Hny-Option A Medigap Part B Family Dependent [employer] Commercial Self [facility] [id number] SP [id number] BC[place] PPO 302/307 [id number] [facility] [id number] [facility] [id number] [facility] [id number] Surgeries/Procedures Procedure Description Date Indications Data Source(s) MRI Lower Extremity Any Joint 12/27/2019 12:00:00 AM E DT [facility] ([facility]) RADIOLOGIC EXAM KNEE COMPLETE 4/MORE VIEWS 12/07/2019 12:00:00 AM EDT [facility] ([facility]) Results ID Date Data Source [id number] 04/24/2020 04:06:00 PM EST [facility] Name Value Range Interpretation Code Description Data Jai rce(s) Supporting Document(s) Immunoglobulin M, Qn, Serum 143 mg/dL 26-217 [facility] ID Date Data Source [id number] 04/24/2020 04:06:00 PM EST [facility] Name Value Range Interpretation Code Description Data Jia rce(s) Supporting Document(s) Please note [facility] The date recorded on the requisition ind icates the sample(s) receivedwere greater than 72 hours old upon arrival in our laboratory. ID Date Data Source [id number] 04/05/2020 04:29:51 PM EST [facility] Name Value Range Interpretation Code Description Data Jia rce(s) Supporting Document(s) Progress Note [facility] [id number]3aQ2pJGD0GApZTwNcPcKkFJA3 lbm [file] AgICAgICAgICAgICAgICAgICAgICAgICAgICAgICAgICAgICAgICAgICANCiAgICAgICAgICAgICAgIC AgICAgICAgICAgICAgICAgICAgICAgICAgICAgICAg ICAgICAgICAgICAgICAgICAgICAgICAgICAgICAgICAgICAgICAgICAgICAgICAgICAgICANCiAgICAg ICAgICAgICAgICAgICAgICAgICAgICAgICAgICAgICAgICAgICAgICAgICAgICAgICAgICAgICAgICAg ICAgICAgICAgICAgICAgICAgICAgICAgICAgICAgIC AgICANCiAgICAgICAgICAgICAgICAgICAgICAgICAgICAgICAgICAgICAgICAgICAgICAgICAgICAgIC AgICAgICAgICAgICAgICAgICAgICAgICAgICAgICAgICAgICAgICAgICAgICANCiAgICAgICAgICAgIC AgICAgICAgICAgICAgICAgICAgICAgICAgICAgICAg ICAgICAgICAgICAgICAgICAgICAgICAgICAgICAgICAgICAgICAgICAgICAgICAgICAgICAgICANCiAg ICAgICAgICAgICAgICAgICAgICAgICAgICAgICAgICAgICAgICAgICAgICAgICAgICAgICAgICAgICAg ICAgICAgICAgICAgICAgICAgICAgICAgICAgICAgIC AgICAgICANCiAgICAgICAgICAgICAgICAgICAgICAgICAgICAgICAgICAgICAgICAgICAgICAgICAgIC AgICAgICAgICAgICAgICAgICAgICAgICAgICAgICAgICAgICAgICAgICAgICAgICANCiAgICAgICAgIC AgICAgICAgICAgICAgICAgICAgICAgICAgICAgICAg ICAgICAgICAgICAgICAgICAgICAgICAgICAgICAgICAgICAgICAgICAgICAgICAgICAgICAgICAgICAN CiAgICAgICAgICAgICAgICAgICAgICAgICAgICAgICAgICAgICAgICAgICAgICAgICAgICAgICAgICAg ICAgICAgICAgICAgICAgICAgICAgICAgICAgICAgIC AgICAgICAgICANCiAgICAgICAgICAgICAgICAgICAgICAgICAgICAgICAgICAgICAgICAgICAgICAgIC AgICAgICAgICAgICAgICAgICAgICAgICAgICAgICAgICAgICAgICAgICAgICAgICAgICANCjw/eHBhY2 xpuOVncpC8O1azTn6QJl3ZUO0jr8NzCPKsNLmurkLu SczNIzWxBBMzHbbFUgw6NJetZV2KkBYrS0LeR6QfJPpyVD7VRTLmYGIqgFDzIIHvTLHfTaW7MSYhDQlj JR9InNUrUCymPFDsWOKjIiIbRFYeFOYyUHInWLUgZLRAFB4ZVfZwJ8WexN55GELWWn5+DQplbmRvYmoN PbMgOBRja1RmNFl1XX2RPDTdQuhsd8VaZcUbXPNWJU osKL1NEZU4FJOrFADkUt4RTRVjA043cfXrBA8FBz9GEvApFJ0nln2VAtVwQXGgJevGUby1BBclQC3LnG YcUJoOnf4lpaAuycEEn0AuvcCfmIJQXMTxPXXzUdGNt64nEQHbSFKyFL0QASB8TBVrMu8fGGFdOHC4Of WgYMRLBT9VZIBhLWIsfQPhDIDaIBCNTT1XJAxfCJL4 OCPugxIbxUFhUTmbZX4QNEToukIdOtYuYSGXJMe+Ri8HOW0ri6ZsUPscLjIgLX3nxx5NFLdLNyXvD5Q8 yOXuV5E2VEudUz6HIMDzIYGsDanzNGRHDTaeFD5CJE4sgkR9DD9YdXRhSQXxARKkuHDfLVu3C17giVLj KNvxFH3RICX+Conrado+Ob8PWMBkYRBsPJLmAlCxAKNGOr BuG9LqE6ESi2LmW2JeDX34eZapksTxEOkzHA6EJW9sTWPwTDSUTH6BoHDogZ2claApVQZlXXRUBuZqS2 9edIPuLDFuNLKzZLZgFc9PKMNyF6FmvxMtxAipkvTqTKBpSRBXNQ9JWDkbblUulTQorLhaMN18eWjhKT 1DUi4MGdUjNV0fga9DkMTnYv7QTUWvAG8SEGQnXCKr TAGnSLN5CUQmMgDgQBniJPUwRFZvYOD8ZZDhVJInED3TUyBmBTZjEZc3HXFeYSSoUNVzvd9KKBGzBJS7 XEC7ViGcNLFaQVWkZWqaTOYmBASvYKH4UGUxESReJP9AGvYpIMSrRFG9LexpQRLoUFHggj9YXHPaCKKg Tku1QsQnUVLoEHIpNGvfORLqUYD9HxL3NCGeRXQlAO 2EVnIjFPYvJIr9QUygWSAtCMQrvv2FMMRhABNlWJZ0XJRqQRGnVDHoQYtyJYQiTTHeIYZ4NPDeYQZuEU 6TTmQwLUFmANEcWAIzZICaMFAzer0CWJOdOTVrQAUfXWPdIHMcAMVtRVeqAMAqBCB8AcM1CEAxMJRoXX 0EAaShYOHaTGK9SuWdIXDaHIDiil8APBPeNVLoEWb0 FMXkWDOrQNMvAYgtMWBfRBR0OhR6ZCIhIOVdCD7DEaOyYXIuUEE5CFbwDWAzHAQcox6LMRMoBKXdGkB0 YkGdCUOeXLFyDHijXKYqZJOkAbo3CLIvCDHvDI6ACyZlMTExBAKqWAkaADMhNLRlzo5ZXMOeMVH5XWT4 ZjInVCKrLTCrQUxaKEJsBVI0UQX0ZBLoWOUoDO0OXj JvWPHsJMEwALHlJTTvCFBfmp7CWLHzWGA9RiJhREQrRAHfYBYyXApyGQQgZGE6QCI9XAVqIOCiPL6HQp AiPGKrOOF5YCOfIXKxXRJkaw6XHLJtEIV8UhA1BzHoQDAtJRLcJMsjNFGeLAO4NxHfLSFhBYTiJZ7PRm PmDUZkHWc5FiGpACPhCIFrty1XVCGyEPL5YYL6RkDb ITFfBQClXOasKBFeWQA5EWMiOZHkVBLiQA3YSdDkZXYfJNb7IIArTTKuOFTlbd3WMGUxEFI5YDNqUvKq SQKzXLFxXAr9buIxyPEiEBn3MV4YV2XxmrLkIqDATp4Tc450YKBeGOVkUe6LQ9ihRf8lDBRaMZIPRl2H OQb4YRDmZeOcPtF6TXQvWNM1KTA7XQSnVXZ3SJy4V5 QwNzQ+RCqcUgQrMPZ9NCv5FdI6RLO8UOhgRvWfAVDuSJtwCJQ3KS3fXHXPGi5+DQpzdGFydHhyZWYNCj CcDysiYErtELHBVx2Q ID Date Data Source [id number] 03/04/2020 09:20:00 AM EST [facility] Name Value Range Interpretation Code Description Data Jia rce(s) Supporting Document(s) SARS coronavirus 2 RNA [Presence] in Res piratory specimen by JAK with probe detection [facility] This lab was ordered by [facility] a nd reported by [facility]. ID Date Data Source [id number] 02/15/2020 12:00:00 AM EST [facility] Name Value Range Interpretation Code Description Data Jia rce(s) Supporting Document(s) SARS coronavirus 2 Ag [facility] This lab was ordered by [facility] and reported by [facility]. Procedure Social History Code Duration Value Status Description Data Source(s ) Alcohol intake 04/05/2020 12:00:00 AM EST Ex-drinker (finding) comp leted Ex- drinker (finding) [facility] Tobacco use and exposure 04/05/2020 12:00:00 AM EST Never used co mpleted Never used [facility] Smoking 04/05/2020 12:00:00 AM EST Never smoker completed Never s [facility] Vital Signs ID Date Data Source UNK Name Value Range Interpretation Code Description Data Source(s) Oxygen saturation in Arterial blood by Pulse oximetry 99 % 99 % [facility] ([facility]) Respiratory rate 16 /min 16 /min [facility] ( [facility]) Heart rate 78 /min 78 /min [facility] ([facility]) Diastolic blood pressure 70 mm[Hg] 70 mm[Hg] [facility] ([facility]) Systolic blood pressure 110 mm[Hg] 110 mm[Hg] [facility] Body mass index (BMI) [Ratio] 33.9 kg/m2 33.9 k g/m2 [facility] ([facility]) Body height 66 [in_i] 66 [in_i] [facility] ([facility]) 5'6" Body weight 210.00 [lb_av] 210.00 [lb_av] MEDEN T ([facility], [facility]) Body temperature 98.4 [degF] 98.4 [degF] RAMY ([facility], [facility]) ID Date Data Source [id number] 04/05/2020 04:29:51 PM [facility] Name Value Range Interpretation Code Description Data Source(s) PREFERRED NAME [facility]
--- OUTSIDE RECORDS SUMMARY | 2020-04-25 21:21 | CCD | Continuity of Care Document ---
Author Author Kymberly FOSTER Organization Unknown Address [address] [place] [address] [place] [address] Phone [phone] Care Team Providers Care Growth Media Mixer Mushroom Name Role Phone Pam Wade MD AUTM [phone] [facility] AUTM [phone] Problems Description No Information Available Social History Type Date Description Comments Sex Unknown Tobacco Use Start: Unknown Never Smoked Cigarettes ETOH Use Denies alcohol use Allergies, Adverse Reactions, Alerts Active Allergies Reaction Severity Comments Date Sulfa sob 02/15/2020 Medications Active Medications SIG Qnty Indications Ordering Provide r Date Paxil 20mg Tablets Unknown Eliquis 5mg Tablets Pam Wade MD Immunizations Description No Information Available Vital Signs Date Vital Result Comment 02/15/2020 2:36pm BP Systolic 110 mmHg BP Diastolic 70 mmHg Heart Rate 78 /min Respiratory Rate 16 /min O2 % BldC Oximetry 99 % Body Temperature 98.4 F Weight 210.00 lb Height 66 inches 5'6" BMI (Body Mass Index) 33.9 kg/m2 Pain Level 1 Results Description No Information Available Procedures Description No Information Available Medical Devices Description No Information Available Encounters Type Date Location Provider Dx Diagnosis Office Visit 02/15/2020 2:15p [facility] Juan Jose Valverde J06.9 Acute upper respiratory infection, unspecified J01.90 Acute sinusitis, unspecified Z20.828 Contact w and exposure to ot h viral communicable diseases Assessments Date Code Description Provider 02/15/2020 J06.9 Acute upper respiratory infectio n, unspecified Ghada Valverde 02/15/2020 J01.90 Acute sinusitis, unspecified Ghada Fermin 02/15/2020 Z20.828 Contact with and (sow spected) exposure to other viral communicable diseases Ghada Valverde Plan of Treatment No Information Available Functional Status Description No Information Available Mental Status Description No Information Available Referrals Description No Information Available
--- OUTSIDE RECORDS SUMMARY | 2020-04-25 21:21 | CCD | Continuity of Care Document ---
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
--- OUTSIDE RECORDS SUMMARY | 2020-04-25 21:21 | CCD | Summary of Care ---
Author Author [facility] Organization [facility] Address Unknown Phone Unavailable Care Team Providers Care Health Support Specialist Name Role Phone Erasto Wade MD PCP Reason for Referral * Physical Therapy (Routine) Referred By Contact Referred To Contact Status Reason Specialty Diagnoses / Procedures Emmett Freeman MD [address] [place] [id number] Email: [email or web address] Open Diagnoses Primary osteoarthritis of right knee Chronic pain of right lower extremity Complex tear of lateral meniscus of right knee as current injury, initial encounter P rocedures Physical Therapy Reason for Visit * Reason Comments New Patient right knee pain Encounter Details Care Team Description Date Type Department Emmett Freeman MD [address] [place] [id number] [phone] Primary osteoarthritis of right knee (Pr imary Dx); Chronic pain of right lower extremity; Complex tear of lateral meniscus of right knee as current injury, initial encounter 04/05/2020 Telemedicine [facility] , [address] [phone] Allergies Comments Active Allergy Reactions Severity Noted Date Other reaction(s): Other (See Comments) Pt states her skin becomes "irritated" but denies rash or hives. Latex 09/16/2013 Penicillamine Anaphylaxis High 09/28/2019 Other reaction(s): Other (See Comments) Unknown Pramipexole 09/16/2013 Dihydrochloride Sulfa Antibiotics Diarrhea, Low 12/28/1985 Hives, Itching, Rash Tobramycin-Dexamethasone Swelling High 09/16 documented as of this encounter (statuses as of 04/05/2020) Medications End Date Status Medication Sig Dispensed Refills Start Date Active PARoxetine HCl 10 MG Oral 0 Tablet (Paxil) 0 Active Apixaban 5 MG Oral Tablet Take by mouth 0 (ELIQUIS) 6 Active Cholecalciferol 125 MCG Take 5,000 0 (5000 UT) Oral Capsule Units by mouth Active Magnesium 200 MG Oral Take by mouth 0 07/07/19 1 Tablet 5 Active Gabapentin 300 MG Oral Take 300 mg 0 Capsule (NEURONTIN) by mouth Three times daily documented as of this encounter (statuses as of 04/05/2020) Active Problems Not on filedocumented as of this encounter (statuses as of 04/05/2020) Social History Date Tobacco Use Types Packs/Day Years Used Never Smoker Smokeless Tobacco: Never Used Drinks/Week oz/Week Comments Alcohol Use Not Currently Sex Assigned at Date Recorded Not on file documented as of this encounter Last Filed Vital Signs Not on filedocumented in this encounter Progress Notes * Sp Townsend MD - 04/05/2020 8:00 AM EST Chief Complaint Patient presents with New Patient right knee pain DR. DARLING KENNY-19 TELEMEDICINE STATEMENT FOR PATIENT NON-URGENT OV: Because of the current COVID situation, I have reviewed the patient's upcoming p atient office visit and deemed it be eligible for a telemedicine visit in lieu o f an in-person visit for the patient's safety in order to minimize their chance of unwanted potential exposure to the virus in the community. The office staff has informed them of this telemedicine option in advance and an encounter has be en scheduled for the patient in [facility]. The patient and/or their family have agre ed to this telemedicine encounter in lieu of an in-person visit. The patient (a nd/or family) understands that their insurance company will be billed for the te lemedicine interaction, so any standard deductibles would apply. Further, the p atient (and/or family) understands that there are limitations to this type of en counter, including the fact that a hands-on physical examination will not be abl e to be performed. In this situation, pertinent physical examination findings m ay be missed. The patient understands that if the need arises for me to examine them in person, we will schedule--with their permission--an in-person encounter as soon as it is safe and the patient is agreeable. We discussed in the manner of shared decision-making the relative risks, merits, and alternatives of the e ncounter. Patient expressed understanding and agreement with the plan. This is a telemedical visit. The patient was informed of the risks including sec urity breech, technological failure, inability to perform a comprehensive physic al exam which could delay or prevent an accurate diagnosis, and potential compli cations from treatment decisions rendered over a telemedical platform. The patie nt understands and consented to the use of tele-health services. ASSESSMENT WAS DONE USING TELEMEDICINE A RESULT OF SOCIAL DISTANCING DUE TO T HE OUTBREAK OF COVID-19 Patient Location: Patient's home My Location: My home Total Time of Patient Telemed Encounter: 47 minutes NEW PATIENT, INITIAL ENCOUNTER, KNEE ARTHRITIS Episode of Care: Initial Symptoms: Chronic Anatomical Site: Knee Laterality: Right CC: Knee pain HPI: Kymberly is a 54 y.o. year/old Unknown female with right knee pain for mu ltple months. The patient describes classic knee arthritic symptoms consisting of shooting and uncomfortable pain on the affected side involving the lateral kn ee that is worse with activity, relieved by rest, and accompanied by swelling. At this point, the pain is intermittent. The severity is moderate. The patient describes many year history of right knee pain. However, it has bee n worse since sometime in late October or early November. 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 A ruptured Cueto's cyst was in the differential diagno sis of her increased pain according to the notes from her outside orthopedic [facility] office. The increase in pain in November has persisted albeit with some improvement. She describes "clicking" and "shifting" in both knees but more so in the right than the left. She feels that the left knee is now compensating an d is generating increased pain as well. She denies any elinor locking. She has had swelling and some giving way, the latter in both knees. Attempted treatment thus far has included OTC NSAIDs and Tylenol. She had tried physical therapy in the past but not recently. She cannot any longer take anti- inflammatories because she is on Eliquis. The patients goal at this time is to discuss options for treatment. She has not tried physical therapy. The f irst opinion locally was rendered by a physician's assistant grocery who told her that s he needed a surgical consultation for her torn meniscus. Her [id number]-if-pzb was operated on by me, so she opted for seeing me instead. PMHx: Reviewed on current visit information sheet. Past Medical History: Diagnosis Date Low back pain Past Surgical History: Procedure Laterality Date SECTION GASTRIC BYPASS INTESTINAL BYPASS KNEE SURGERY scope Current Outpatient Medications: Apixaban 5 MG Oral Tablet (ELIQUIS), Take by mouth, Disp: , Rfl: Cholecalciferol 125 MCG (5000 UT) Oral Capsule, Take 5,000 Units by mout h, Disp: , Rfl: Gabapentin 300 MG Oral Capsule (NEURONTIN), Take 300 mg by mouth Three t imes daily, Disp: , Rfl: Magnesium 200 MG Oral Tablet, Take by mouth, Disp: , Rfl: PARoxetine HCl 10 MG Oral Tablet (Paxil), , Disp: , Rfl: Allergies Allergen Reactions Penicillamine Anaphylaxis Tobramycin-Dexamethasone Swelling Latex Other reaction(s): Other (See Comments) Pt states her skin becomes "irritated" but denies rash or hives. Pramipexole Dihydrochloride Other reaction(s): Other (See Comments) Unknown Sulfa Antibiotics Diarrhea, Hives, Itching and Rash PSoHx: Social History Tobacco Use Smoking status: Never Smoker Smokeless tobacco: Never Used Substance Use Topics Alcohol use: Not Currently Drug use: Not Currently FHx: Cancer-related family history is not on file. Family History Problem Relation Age of Onset Diabetes Mother Heart disease Mother Diabetes Father Heart disease Father ROS: Comprehensive review of systems completed by patient and reviewed by me. PEX: Telemed PEx limited to observation only. Healthy-appearing, well-developed, well-nourished, alert and oriented x person/p lace/time. Mood showing no evidence of agitation, anxiety, or depression. HEENT: Normocephalic and atraumatic to inspection. Sclerae anicteric. Hearing in tact to conversation. NECK: Visibly normal to observation. No JVD. HEART: Unable to examine through TeleMed. LUNGS: Respiratory effort normal, unlabored. No retractions. ABDOMEN: Unable to examine through TeleMed. SKIN: No rash, jaundice, or nodules (also see MSK below) on visible skin. NEURO: Neuro status distally on the pertinent side shows intact motor function thai gonzalez. Patient denies loss of sensation. MUSCULOSKELETAL: Range of motion of the knee is 0 to 120 degrees bilaterally. C auses lateral sided joint pain on the right especially with concomitant palpatio n. Single-leg stance on the right side produces contralateral left sided latera l knee pain and ipsilateral anterior knee pain. Single-leg stance on the left p roduces the same pattern of contralateral lateral knee pain and ipsilateral ante rior knee pain. Radiology Review: All imaging was reviewed by me with patient and/or family memb ers. Knee x-rays show mild degenerative changes with small marginal osteophyte formation int the lateral compartment. There is also evidence of osteophyte form ation in the patellofemoral joint and [id number]. MRI demonstrates signal changes in the lateral meniscus with at the very least s evere degeneration and possibly lateral meniscus tears.. There is evidence of c artilaginous thinning At the patellofemoral joint the medial and lateral compart ment cartilage is less affected. Assessment: Right chronic knee pain; DDX- lateral meniscal pathology and early D NEWT[place]. Although the patellofemoral articulation degenerative changes are advanced with [id number] changes, subluxation, and osteophytes, she really does not hav e significant anterior knee pain. The fact that her pain is fairly localized to the lateral compartment correlates well with the MRI changes of lateral meniscus pathology, so I suspect that the meniscus is the real source of her problems at this point in time. Plan: Early DJD and lateral meniscus tear- We outlined non-operative care for t he patient including use of Tylenol for the pain, Glucosamine/Chondroitin dietar y additives, judicious use of NSAIDs, activity restrictions, and physical therap y. The patient opts for physical therpay. Even though her most recent MRI is fr om several months ago, I do not see the utility in obtaining an up-to-date MRI a t this point. Were she to come to consideration of surgery, depending upon when that is, she might need another MRI at that point, but not now. We will leave her follow-up at as needed. She can feel free to contact us if she does not res pond to the physical therapy. At that point in time, we might consider a new MR I and possible arthroscopic meniscectomy. CC: Erasto Wade MD Encounter Diagnoses Name Primary? Primary osteoarthritis of right knee Yes Chronic pain of right lower extremity Complex tear of lateral meniscus of right knee as current injury, initial encounter Orders Placed This Encounter Physical Therapy documented in this encounter Plan of Treatment Health Maintenance Due Date Last Done Comments MMR Vaccines (1 of - 1966 Standard series) Varicella Vaccines (1 of 1966 2 - 2-dose childhood series) DTaP,Tdap,and Td Vaccines 1972 (1 - Tdap) HIV Screening 1978 Cervical Cancer Screening 1986 5 years Breast Cancer Screening 2 11/22/2015 years Colon Cancer Screening 10 11/22/2015 yrs Influenza Vaccine 12/29/2019 Pneumococcal Vaccine: 65+ 2030 Years (1 of 1 - PPSV23) HIB Vaccines Aged Out No longer eligible based on patient's age to complete this topic Hepatitis A Vaccines Aged Out No longer eligibl e based on patient's age to complete this topic Hepatitis B Vaccines Aged Out No longer eligibl e based on patient's age to complete this topic IPV Vaccines Aged Out No longer eligible based on patient's age to complete this topic Pneumococcal Vaccine: Aged Out No longer eligib le based on patient's age to Pediatrics (0 to 5 Years) complete this topic and At-Risk Patients (6 to 64 Years) documented as of this encounter Results Not on filedocumented in this encounter Visit Diagnoses Diagnosis Primary osteoarthritis of right knee - Primary Primary localized osteoarthrosis, lower leg Chronic pain of right lower extremity Complex tear of lateral meniscus of rig ht knee as current injury, initial encounter documented in this encounter
[2020-04-25] MEDS ORDERED: VITA50005 (21:23)
--- OUTSIDE RECORDS SUMMARY | 2020-04-25 22:24 | CCD ---
Author Author [facility] Organization [facility] Address Unknown Phone Unavailable Care Team Providers Care Ordained Minister Name Role Phone Tashia Freeman MD Unavailable [...] Tashia Christine MD Unavailable Unavailable Lydia, Tashia Chirstine MD Unavailable Unavailable Lydia, Tashia Christine MD [...] Lydia, A Emmett MD Unavailable Unavailable Fish, [facility], PA-C Unavailable Unavailabl e Fish, [facility], PA-C Unavailable Unavailabl e Fish, [facility], PA-C Unavailable Unavailabl e Fish, [facility], PA-C Unavailable Unavailabl e Fish, [facility], PA-C Unavailable Unavailabl e Fish, [facility], PA-C Unavailable Unavailabl e Fish, [facility], PA-C Unavailable Unavailabl e Fish, [facility], PA-C Unavailable Unavailabl e Fish, [facility], PA-C Unavailable Unavailabl e Fish, [facility], PA-C Unavailable Unavailabl e Fish, [facility], PA-C Unavailable Unavailabl e Fish, [facility], PA-C Unavailable Unavailabl e Fish, [facility], PA-C Unavailable Unavailabl e Fish, [facility], PA-C Unavailable Unavailabl e Fish, [facility], PA-C Unavailable Unavailabl e Fish, [facility], PA-C Unavailable Unavailabl e Fish, [facility], PA-C Unavailable Unavailabl e Fish, [facility], PA-C Unavailable Unavailabl e Fish, [facility], PA-C Unavailable Unavailabl e Fish, [facility], PA-C Unavailable Unavailabl e Fish, [facility], PA-C Unavailable Unavailabl e Fish, [facility], PA-C Unavailable Unavailabl e Fish, [facility], PA-C Unavailable Unavailabl e Fish, [facility], PA-C Unavailable Unavailabl e Fish, [facility], PA-C Unavailable Unavailabl e Fish, [facility], PA-C Unavailable Unavailabl e Fish, [facility], PA-C Unavailable Unavailabl e Fish, [facility], PA-C Unavailable Unavailabl e Fish, [facility], PA-C Unavailable Unavailabl e Fish, [facility], PA-C Unavailable Unavailabl e Fish, [facility], PA-C Unavailable Unavailabl e Fish, [facility], PA-C Unavailable Unavailabl e Fish, [facility], PA-C Unavailable Unavailabl e AAYUSH FOSTER PA Unavailable Unavailable AAYUSH FOSTER PA Unavailable Unavailable AYAUSH FOSTER PA Unavailable Unavailable AAYUSH FOSTER PA [...] Unavailable Unavailable Flavio Wade MD Unavailable Unavailable Flaivo Wade MD Unavailable Unavailable Zoë Waded Unavailable [...] Unavailable Unavailable Dariusz Wade Moid Unavailable Unavailable Draiusz Wade Moid Unavailable Unavailable Dariusz Wade Moid [...] is protected by Article 27-F of the [facility] Public Health law. If you continue you may have access to information: Regarding HIV / AIDS; Provided by facilities licensed or operated by the [facility] Office of Mental Health; or Provided by the [facility] Office for People With Developmental Disabilities. If such information is present, then the following [facility] mandated warning applies: This information has been [...] law may result in a fine or correction sentence or both. A general authorization for [...] MD [id number] 04/05/2020 12:00:0 0 AM EST [facility] Outpatient Attender: AAYUSH arthur 02/15/2020 01:15:00 PM EST [facility] ([facility]) Outpatient Attender: Amirah PINO PA-C Physical Therapy 01/03/2020 03:30:00 PM EDT [facility] ([facility]) Outpatient Attender: Amirah PINO PA-C Physical Therapy 12/21/2019 01:00:00 PM EDT [facility] ([facility]) Outpatient Attender: Shaista AHN Physical Therapy 01:30:00 PM EDT [facility] ([facility]) Outpatient Referrer: Pam Wade MD 09/23/2019 05:12:00 AM E [facility] Imaging Outpatient Referrer: Pam Wade MD 04/08/2019 10:19:00 AM E [facility] Radiology Imaging Outpatient Referrer: Pam Wade MD 04/07/2019 02:52:00 PM E [facility] Imaging Medications Medication Brand Name Start [...] type / Coverage type Policy ID Covered green party ID Covered green party's relationship to hurley Policy Hurley Plan Information [facility] [id number] SP [id number] [facility] U [id number] Self [id number] [facility] U [id number] Self [id number] [facility] U [id number] Self [id number] UMR O [id number] S [id number] KACY CLAIM ADMIN WORK COMP SP KACY CLAIM ADMIN WORK O [id number] S [id number] OTHER WORKERS COMPENSATI O [id number] S [id number] [facility] [id number] SP [id number] [place] PPO 302/307 [id number] SP [id number] EXCELLUS BS B [id number] S [id number] Bso ZFC,Yot,Yoy,ZFH,ZFP Medigap Part B [id number] Family Dependent [id number] [facility] [employer] [id number] Self [id number] Bso ZFC,Yot,Yoy,ZFH,ZFP Medigap Part B [id number] Family Dependent [id number] [employer] [employer] - Private Location App [id number] Self [id number] Bso ZFC,Yot,Yoy,ZFH,ZFP Medigap Part B [id number] Family Dependent [id number] [employer] [employer] - Private Location App [id number] Self [id number] Bso ZFC,Yot,Yoy,ZFH,ZFP Medigap Part B [id number] Family Dependent [id number] BS [employer] [employer] [id number] Self [id number] Bso ZFC,Yot,Yoy,ZFH,ZFP Medigap Part B [id number] Family Dependent [id number] BS [employer] [id number] Self [id number] Bso ZFC,Yot,Yoy,ZFH,ZFP Medigap Part B [id number] Family Dependent [id number] BS [employer] [employer] [id number] Self [id number] [employer] [place] PPO 302/307 [id number] SP [id number] Bso ZFC,Yot,Yoy,ZFH,ZFP Medigap Part B [id number] Family Dependent [id number] BS [employer] [id number] Self [id number] [employer] [place] PPO 302/307 [id number] SP [id number] Bso ZFC,Yot,Yoy,ZFH,ZFP Medigap Part B [id number] Family Dependent [id number] BS [employer] [id number] Self [id number] EXCELLUS BCBS B [id number] S YND BCBS [place] PPO 302/307 [id number] SP [id number] [facility] [id number] SP [id number] [facility] O [id number] S [id number] [facility] [id number] SP [id number] [employer] O [id number] S [id number] [facility] [id number] Paulina [id number] [facility] Medigap Part B Self BC/BS [place]-Option A Medigap Part B Family Dependent [employer] Commercial Self [facility] [id number] SP [id number] [employer] [place] PPO 302/307 [id number] 2 [id number] [facility] [id number] [facility] [id number] [facility] [id number] Surgeries/Procedures Procedure Description Date Indications Data Source(s) MRI Lower Extremity Any Joint 12/27/2019 12:00:00 AM E DT [facility] ([facility]) RADIOLOGIC EXAM KNEE COMPLETE 4/MORE VIEWS 12/07/2019 12:00:00 AM EDT [facility] ([facility]) Results ID Date Data Source [id number] 04/24/2020 04:06:00 PM EST [facility] Name Value Range Interpretation Code Description Data Jia rce(s) Supporting Document(s) Immunoglobulin M, Qn, Serum 143 mg/dL 26-217 [facility] ID Date Data Source [id number] 04/24/2020 04:06:00 PM EST [facility] Name Value Range Interpretation Code Description Data Jia rce(s) Supporting Document(s) Please note [facility] The date recorded on the requisition ind icates the sample(s) receivedwere greater than 72 hours old upon arrival in our laboratory. ID Date Data Source [id number] 04/05/2020 04:29:51 PM EST [facility] Name Value Range Interpretation Code Description Data Jia rce(s) Supporting Document(s) Progress Note [facility] DUECJy0sQyDZRhYb86/KYRqhFZZtp6KpEIrbRIk1TPhbXDJtZ5SqUPZ4pY5rANZ0TSjUTbZbRwBpZOW7 lbm [file] AgICAgICAgICAgICAgICAgICAgICAgICAgICAgICAgICAgICAgICAgICANCiAgICAgICAgICAgICAgIC AgICAgICAgICAgICAgICAgICAgICAgICAgICAgICAg ICAgICAgICAgICAgICAgICAgICAgICAgICAgICAgICAgICAgICAgICAgICAgICAgICAgICANCiAgICAg ICAgICAgICAgICAgICAgICAgICAgICAgICAgICAgICAgICAgICAgICAgICAgICAgICAgICAgICAgICAg ICAgICAgICAgICAgICAgICAgICAgICAgICAgICAgIC AgICANCiAgICAgICAgICAgICAgICAgICAgICAgICAgICAgICAgICAgICAgICAgICAgICAgICAgICAgIC AgICAgICAgICAgICAgICAgICAgICAgICAgICAgICAgICAgICAgICAgICAgICANCiAgICAgICAgICAgIC AgICAgICAgICAgICAgICAgICAgICAgICAgICAgICAg ICAgICAgICAgICAgICAgICAgICAgICAgICAgICAgICAgICAgICAgICAgICAgICAgICAgICAgICANCiAg ICAgICAgICAgICAgICAgICAgICAgICAgICAgICAgICAgICAgICAgICAgICAgICAgICAgICAgICAgICAg ICAgICAgICAgICAgICAgICAgICAgICAgICAgICAgIC AgICAgICANCiAgICAgICAgICAgICAgICAgICAgICAgICAgICAgICAgICAgICAgICAgICAgICAgICAgIC AgICAgICAgICAgICAgICAgICAgICAgICAgICAgICAgICAgICAgICAgICAgICAgICANCiAgICAgICAgIC AgICAgICAgICAgICAgICAgICAgICAgICAgICAgICAg ICAgICAgICAgICAgICAgICAgICAgICAgICAgICAgICAgICAgICAgICAgICAgICAgICAgICAgICAgICAN CiAgICAgICAgICAgICAgICAgICAgICAgICAgICAgICAgICAgICAgICAgICAgICAgICAgICAgICAgICAg ICAgICAgICAgICAgICAgICAgICAgICAgICAgICAgIC AgICAgICAgICANCiAgICAgICAgICAgICAgICAgICAgICAgICAgICAgICAgICAgICAgICAgICAgICAgIC AgICAgICAgICAgICAgICAgICAgICAgICAgICAgICAgICAgICAgICAgICAgICAgICAgICANCjw/eHBhY2 gpaZArzuU5I7nuTo1PSu6HTI8zr7UpLSApQRwjnnWt FftJPuCbQAOfNvoKHqm1FOalOA6YdLKlT0StS8OfNXodJH7TNESeYUUrsZGeXCGhSDFuNvY2RHFtQZoj MG8MnWJgBYenKFSlFFAsVdHnJPEhJDKlNARnVSUwVBWNRK1DTvRkD7AvyP35YKLBRh0+DQplbmRvYmoN XyQiTRYfl9XeXSs7FC2IPDXaGstya7RvGxWaKWWQRP gcSN5XWOE6VYGjUYXnXv9XJCVyK726xrFtAP4RCe2OUeJmXR0jec4OMfLgVEPuDunDLar6XJfwHT9MjE WdVNcCdn3wldHduzOCr2YhttYsvEBENVGzOGFhMsXVx07eLRKwWICzAR8HISM2XONiYv9mEXMaAHJ3Wq YcGYHRFQ8TDNFuBWSucKEaRFWbFGNWAV8INHhdYCG9 VPTgnuPvsNRdUXokNA1VFCMvibDbSkMvPSXWZZb+Pc6NKV7zq1RsZBteOyCuEQ1rqt6PUOsPBmXhM3K8 gQBtU3Z4XBfsLm3HLZBaETXoFgrlKSMDWRoaIC2VTA1vleL0EX1DuHNfOYMwCTYjlFToXYe4M89vbCIo GEpgQK6DBLH+Conrado+Ly2DRYOjIMWmDEUiPxCtFOVSQe TxS6FpP4QDb5QtJ8JnVO78bRgsesUhUZqxGH8GVY9jHKLvCFWKET5QrNOhdN2eljBwEFEyYDEKCjGvO9 4cyVMsCQCwUXAnQRWlXh0JHMZeH3HekfFeqNndnrYoIYEaJIMJEG6WBSvnxrZhvRDstUojFB64uNcaUR 9AWj4QIrQgZD6awc9ZnVYvIz1VXAGdKU4NXEYjVVMy NVXsHIB4AYGjZmHyRWslSQJwGXYeXGB9YFBsRMHdSG2YYpUzLVAuJLp4BKDtXGVtELFmnj9HOJGuAYZ9 BFP1MjVaPHCpSQVmZHepCAAaIVVtRXH5PDJxWBCyCC5KNlKnTCGcBMR8IrsaGMYdQKHszq9STVXkAZZt Yrg0MtMsWJCmHJLrSDnhEXVkENR0BeV8CDZqPMDeDU 3SOqMnJBMzNWf7HDnaWIXbSETtaz2IXOIrURAgDEN6NNUiJMKvJTHzHJyyQVLgDROmLAP4FXKkXAYoIH 3ELxBdGMUgGCBrNMCnAYUnYKVbqy2RZQUdDEOqHDUbDKSyGSZeLTBuVXxuHETwQGU1McW5RQUvULCqQS 6WMaEjKSAuAIO7IfPkNTYeNMUtro9GROGoMMOjCIl1 EAOjAOKnWAXdJAyjANDrSAT0NrS4CTSwYEJuMY0PJaGxTEOvPCM7XFrqTIPdXPHmjk8HKYCpFMGyCfP1 AmQiZSUyMYCpCXdgFVVqFPJtWpz5EDSyFWQaBQ6AXxBjFPVbPPClUCfzEBHsCOFjci5AJQZfXNJ6JNC2 HtFpRLXsCMMrCNmqQWLoPPI9FCA8YSWbKPVgYQ8LRq UlCGNyGCDvJXJdEOBpIXZoam4QFREbHQW9IbImKXEcNNEyYDJaBCauQOQmCFK5RDA8IDCfSLMqHB1CUc NxOPYpKHK2OQMcXQXkKQOufj3YOZHmHWZ2DuP3RbNrUPScOBXiOQloHOLcUXN2KvQaWISsQEHrMP1MRh ZzTELsUMg0NcJgNIGtRMBihl1TYPScUAV9MWV5NyKs ZQGrDGTfQBbrAOWuACU0CRBkJCDjJRJsWK9JDhKoVIBaZRh2AIHrYUHjYZWiwv7AWBFdZQL5IPWzNbBg FIMmYMQrADt8doRdhLMtALq1AK6IQ2YctpQqBaYMPj2Ze131TRUrOPUnXn9DE2daLl4kHQCoUBYEXg1Q LZl7FHElDtQrOlN9OWSdALS1UBS8TTMwIFI8AKf0E2 QwNzQ+LNeqRhBoMGP0DNz0SjA1VVC3DBimCnGkKELxIUliRNE9LC7gVKMQPn0+DQpzdGFydHhyZWYNCj ZgZukwNKyxHZLPQj4Z ID Date Data Source [id number] 03/04/2020 09:20:00 AM EST [facility] Name Value Range Interpretation Code Description Data Jia rce(s) Supporting Document(s) SARS coronavirus 2 RNA [Presence] in Res piratory specimen by JAK with probe detection [facility] This lab was ordered by [facility] a nd reported by [facility]. ID Date Data Source [id number] 02/15/2020 12:00:00 AM EST [facility] Name Value Range Interpretation Code Description Data Jia rce(s) Supporting Document(s) SARS coronavirus 2 Ag [facility] This lab was ordered by [facility] and reported by [facility]. Procedure Social History Code Duration Value Status Description Data Source(s ) Alcohol intake 04/05/2020 12:00:00 AM EST Ex-drinker (finding) comp leted Ex- drinker (finding) [facility] Tobacco use and exposure 04/05/2020 12:00:00 AM EST Never used co mpleted Never used [facility] Smoking 04/05/2020 12:00:00 AM EST Never smoker completed Never s [facility] Vital Signs ID Date Data Source UNK Name Value Range Interpretation Code Description Data Source(s) Oxygen saturation in Arterial blood by Pulse oximetry 99 % 99 % [facility] ([facility]) Respiratory rate 16 /min 16 /min [facility] ( [facility]) Heart rate 78 /min 78 /min [facility] ([facility]) Diastolic blood pressure 70 mm[Hg] 70 mm[Hg] [facility] ([facility]) Systolic blood pressure 110 mm[Hg] 110 mm[Hg] [facility] Body mass index (BMI) [Ratio] 33.9 kg/m2 33.9 k g/m2 [facility] ([facility]) Body height 66 [in_i] 66 [in_i] [facility] ([facility]) 5'6" Body weight 210.00 [lb_av] 210.00 [lb_av] [facility] ([facility], [facility]) Body temperature 98.4 [degF] 98.4 [degF] [facility] ([facility], [facility]) ID Date Data Source [id number] 04/05/2020 04:29:51 PM [facility] Name Value Range Interpretation Code Description Data Source(s) PREFERRED NAME [facility]
[2020-04-25] MEDS ORDERED: MORPHINE 4 MG/ML 1ML VIAL/SYRINGE (J2270) IV ONE (22:45)
[2020-04-25] MEDS ORDERED: NS 1,000 ML IV ONE (22:45)
[2020-04-25 23:05] LABS: BASO # 0.1 10^3/uL (0.0-0.2); BASO % 1.2 % (0.0-1.0); EOS # 0.1 10^3/uL (0.0-0.5); EOS % 1.5 % (0.0-3.0); HEMATOCRIT 39.6 % (36.0-47.0); HEMOGLOBIN 12.8 g/dl (12.0-15.5); LYMPH # 2.6 10^3/uL (1.5-5.0); LYMPH % 38.2 % (24.0-44.0); MEAN CORPUSCULAR HEMOGLOBIN 28.8 pg (27.0-33.0); MEAN CORPUSCULAR HGB CONC 32.3 g/dl (32.0-36.5); MEAN CORPUSCULAR VOLUME 89.2 fl (80.0-96.0); MONO # 0.7 10^3/uL (0.0-0.8); MONO % 10.3 % (0.0-5.0); NEUTROPHILS # 3.2 10^3/uL (1.5-8.5); NEUTROPHILS % 48.7 % (36.0-66.0); PLATELET COUNT, AUTOMATED 291 10^3/uL (150-450); RED BLOOD COUNT 4.44 10^6/uL (4.00-5.40); WHITE BLOOD COUNT 6.7 10^3/uL (4.0-10.0)
[2020-04-25 23:21] LABS: INR 1.02; PROTHROMBIN TIME 13.6 SECONDS (12.5-14.3)
[2020-04-25 23:22] LABS: PARTIAL THROMBOPLASTIN TIME 28.4 SECONDS (24.2-38.5)
[2020-04-25] MEDS ORDERED: ISOVUE-370 76% 100ML VIAL As Ordered ONE (23:33)
[2020-04-25 23:40] LABS: ALBUMIN 3.6 GM/DL (3.2-5.2); ALT/SGPT 55 U/L (12-78); BILIRUBIN,DIRECT < 0.1 MG/DL (0.0-0.2); BILIRUBIN,TOTAL 0.1 MG/DL (0.2-1.0); CK-MB VALUE MASS < 1.0 NG/ML (<3.6); CPK CREATINE PHOSPHOKINASE 55 U/L (26-192); LIPASE 75 U/L (73-393); MB/CK RELATIVE INDEX 1.82 (< OR =4); TROPONIN I < 0.02 NG/ML (< 0.10)
--- NOTE | 2020-04-26 00:16 | REPVR ---
PROCEDURE INFORMATION: Exam: CT Abdomen And Pelvis With Contrast Exam date and time: 04/25/2020 10:40 PM Age: 54 years old Clinical indication: Abdominal pain; Localized; Left upper quadrant (luq); Additional info: Luq pain; R/O diverticulitis TECHNIQUE: Imaging protocol: Computed tomography of the abdomen and pelvis with intravenous contrast. Radiation optimization: All CT scans at this facility use at least one of these dose optimization techniques: automated exposure control; mA and/or kV adjustment per patient size (includes targeted exams where dose is matched to clinical indication); or iterative reconstruction. Contrast material: ISO; Contrast volume: 100 ml; Contrast route: INTRAVENOUS (IV); COMPARISON: CT ABD/PEL W/IV CONTRAST ONLY 03/20/2019 2:43 PM FINDINGS: Liver: Normal. No mass. Gallbladder and bile ducts: Few small stones in the gallbladder. No gallbladder wall thickening. No biliary ductal dilatation. Pancreas: Normal. No ductal dilation. Spleen: Normal. No splenomegaly. Adrenal glands: Normal. No mass. Kidneys and ureters: Normal. No hydronephrosis. Stomach and bowel: Status post gastric bypass surgery. Moderate stool in the colon. Status post sigmoid colon resection. No abnormal bowel dilatation. No abnormal bowel wall thickening. Negative for colonic diverticulitis. Appendix: Appendix measures 1.6 cm in diameter. Appendix is stool filled. No appendiceal wall thickening. No evidence of appendicitis however. Intraperitoneal space: Unremarkable. No free air. No significant fluid collection. Vasculature: Mild atherosclerotic disease. No aortic aneurysm. Lymph nodes: Unremarkable. No enlarged lymph nodes. Urinary bladder: Unremarkable as visualized. Reproductive: Uterus is normal. Bones/joints: Mild degenerative spine. No acute fracture. Soft tissues: Unremarkable. IMPRESSION: 1. Cholelithiasis without acute cholecystitis. 2. Status post gastric bypass surgery. 3. No evidence of diverticulitis. 4. Dilated appendix without evidence of acute appendicitis. Electronically signed by: Juve Levy On 04/26/2020 00:15:53 AM
[2020-04-26 00:45] VITALS: BP 138/74
--- NOTE | 2020-04-26 05:40 | ECGEPIP ---
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
== END 2020-04-26 00:58 | disposition home or self-care (01) ==
LOC: M ED 21:14
DX: K80.20 Calculus of gallbladder without cholecystitis without obstruction (principal); E11.9 Type 2 diabetes mellitus without complications; K58.9 Irritable bowel syndrome, unspecified; F33.9 Major depressive disorder, recurrent, unspecified; F41.9 Anxiety disorder, unspecified; Z86.718 Personal history of other venous thrombosis and embolism; Z98.84 Bariatric surgery status; Z79.899 Other long term (current) drug therapy; Z79.01 Long term (current) use of anticoagulants; Z88.0 Allergy status to penicillin; Z88.1 Allergy status to other antibiotic agents; Z88.2 Allergy status to sulfonamides; Z88.8 Allergy status to other drugs, medicaments and biological substances
CPT/HCPCS: 74177; 80047; 80076; 82550; 82553; 83690; 84484; 85025; 85610; 85730; 93005; 93041; 96361; 96374; 99284; J2270; Q9967

== ENCOUNTER 2020-05-08 10:51 | Emergency (ER) | payer OTHER ==
[~2020-05-08] VITALS: Ht 167.6 cm; Wt 103.5 kg
[~2020-05-08 10:51] MED LIST changes: +VITA50005
--- NOTE | 2020-05-08 11:25 | REP ---
INDICATION: fall injury COMPARISON: None. TECHNIQUE: AP and lateral views of the right humerus. FINDINGS: The osseous structures and joint spaces are intact and normal. There is no evidence for acute fracture or dislocation. No subcutaneous emphysema or radiodense foreign body. IMPRESSION: . No acute fracture or dislocation. <Electronically signed by Andrew Ospina > 05/08/20 [id number]
[2020-05-08] MEDS ORDERED: ACETAMINOPHEN 500 MG TAB PO ONE (11:45)
--- NOTE | 2020-05-08 12:26 | REP ---
INDICATION: fall. COMPARISON: None. TECHNIQUE: Three views. FINDINGS: There is a dextroconvex curvature in the thoracic spine with degenerative disc spurring. The right glenohumeral and acromioclavicular joints are normally aligned. No fracture or subluxation is seen. There is some limitation of rotational range of motion evident between the internal and external rotation views. IMPRESSION: No fracture or subluxation seen. Limited range of rotational motion at the shoulder. <Electronically signed by Marcos Giraldo > 05/08/20 [id number]
--- NOTE | 2020-05-08 12:26 | REP ---
INDICATION: fall. COMPARISON: None. TECHNIQUE: Four views. FINDINGS: Four views of the right elbow demonstrate normal bones, joints, and soft tissues. No fracture or subluxation is seen. No opaque foreign body noted. No evidence of joint effusion IMPRESSION: Negative right elbow series. <Electronically signed by Marcos Giraldo > 05/08/20 [id number]
--- NOTE | 2020-05-08 12:27 | REP ---
INDICATION: fall. COMPARISON: None. TECHNIQUE: Two views of the right forearm. FINDINGS: AP and lateral views of the right forearm demonstrate normal bones, joints, and soft tissues. No fracture or subluxation is seen. No opaque foreign body noted. There is mild lateral epicondylar spurring. IMPRESSION: Negative right forearm series. <Electronically signed by Marcos Giraldo > 05/08/20 [id number]
--- NOTE | 2020-05-08 12:38 | REP ---
INDICATION: fall. Injury in a fall. COMPARISON: Comparison radiographs August 25, 2013.. TECHNIQUE: Five views. FINDINGS: Five views of the left knee demonstrate moderate 3 compartment osteoarthritis of the right knee with patellofemoral narrowing and spur formation. There is well established osteophyte formation medially and to a lesser extent, laterally. No fracture or subluxation is seen.. . No opaque foreign body noted. IMPRESSION: Moderate 3 compartment osteoarthritis of the right knee somewhat more pronounced than on the 2013 prior study. No acute bony abnormality.. <Electronically signed by Marcos Giraldo > 05/08/20 [id number]
--- NOTE | 2020-05-08 12:45 | REP ---
INDICATION: fall, right rib pain. COMPARISON: July 20, 2016.. TECHNIQUE: Five views including PA chest. FINDINGS: PA chest radiograph shows no evidence of pneumothorax or hydrothorax. Mediastinum is not widened. Heart size is normal. The lung santos are clear. The pleural angles are sharp. There is a dextroconvex curvature in the thoracic spine which is unchanged. Degenerative disc disease changes are noted in the rest X by no also unchanged. Multiple views of the right rib cage show no visible rib fracture or bony destructive lesion. IMPRESSION: Negative right rib series. Degenerative disc disease in the thoracic spine along with mild dextroconvex curvature. <Electronically signed by Marcos Giraldo > 05/08/20 [id number]
--- NOTE | 2020-05-08 12:46 | REP ---
INDICATION: fall. COMPARISON: Comparison CT study 03 January 2015.. TECHNIQUE: Helical scanning is acquired. 5 mm axial images were reformatted. Coronal MPR images were generated. FINDINGS: Bone window settings demonstrate an intact bony calvarium. There is no evidence of skull fracture or incidental bony calvarial lesion. The visualized paranasal sinuses appear clear. No intraorbital abnormality is seen. On soft tissue window setting images; the lateral, third, and fourth ventricles are normal in size and position. De Guzman-white differentiation pattern is normal above and below the tentorium. There are is no evidence of intracranial hemorrhage. No mass, edema, infarction, or midline shift is seen. No extra-axial fluid collection is appreciated. IMPRESSION: Negative noncontrast head CT. <Electronically signed by Marcos Giraldo > 05/08/20 [id number]
--- NOTE | 2020-05-08 12:49 | REP ---
INDICATION: fall. COMPARISON: None. TECHNIQUE: Helical scanning is acquired and overlapping 2 mm high resolution axial images were generated and reviewed at bone and soft tissue window settings. Coronal and sagittal multiplanar re-formations images are generated. FINDINGS: There is no evidence of cervical spine element fracture. No skull base fracture is seen. Cervical vertebral body heights are preserved. Alignment is normal. Facet joints are normally aligned bilaterally at each cervical level on multiplanar re-formations images. There is no evidence of intraspinal or paraspinal hematoma. No extra vertebral abnormality is seen. There is developmental fusion at the C4-5 disc level. The C4-5 facet joints are fused bilaterally as well. Some degenerative spondylosis changes are noted. Degenerative disc disease is noted at C3-4, C5-6, and C6-7 in the cervical spine. There is straightening of the normal cervical lordosis. There is left-sided uncovertebral spurring and foraminal narrowing at the C5-6 level and at the C6-7 level. IMPRESSION: Degenerative spondylosis changes as above. Developmental fusion C4-C5. No traumatic abnormality noted.. <Electronically signed by Marcos Giraldo > 05/08/20 [id number]
[2020-05-08] MEDS ORDERED: ACET1TAB16 PO (13:37)
[2020-05-08 13:43] VITALS: BP 143/82
== END 2020-05-08 13:51 | disposition home or self-care (01) ==
LOC: M ED 10:51
DX: S49.91XA Unspecified injury of right shoulder and upper arm, initial encounter (principal); S80.01XA Contusion of right knee, initial encounter; S20.211A Contusion of right front wall of thorax, initial encounter; W10.8XXA Fall (on) (from) other stairs and steps, initial encounter; Y92.89 Other specified places as the place of occurrence of the external cause; M17.11 Unilateral primary osteoarthritis, right knee; M51.9 Unspecified thoracic, thoracolumbar and lumbosacral intervertebral disc disorder; I10 Essential (primary) hypertension; D50.9 Iron deficiency anemia, unspecified; F33.9 Major depressive disorder, recurrent, unspecified; F41.9 Anxiety disorder, unspecified; K21.9 Gastro-esophageal reflux disease without esophagitis; K58.9 Irritable bowel syndrome, unspecified; Z86.718 Personal history of other venous thrombosis and embolism; Z98.84 Bariatric surgery status; Z79.899 Other long term (current) drug therapy; Z79.01 Long term (current) use of anticoagulants; Z88.0 Allergy status to penicillin; Z88.1 Allergy status to other antibiotic agents; Z88.2 Allergy status to sulfonamides

== ENCOUNTER → 2020-05-18 | Outpatient (CLI) | payer OTHER ==
[~2020-05-18] MED LIST changes: +ACET1TAB16 PO
[2020-05-18 13:31] LABS: HEMATOCRIT 40.9 % (36.0-47.0); HEMOGLOBIN 13.1 g/dl (12.0-15.5); MEAN CORPUSCULAR HEMOGLOBIN 29.2 pg (27.0-33.0); MEAN CORPUSCULAR VOLUME 91.3 fl (80.0-96.0); PLATELET COUNT, AUTOMATED 321 10^3/uL (150-450); RED BLOOD COUNT 4.48 10^6/uL (4.00-5.40); WHITE BLOOD COUNT 6.4 10^3/uL (4.0-10.0)
[2020-05-18 13:58] LABS: HEMOGLOBIN A1c 6.2 %
[2020-05-18 13:59] LABS: ALBUMIN 3.6 GM/DL (3.2-5.2); ALT/SGPT 64 U/L (12-78); BILIRUBIN,TOTAL 0.3 MG/DL (0.2-1.0); BLOOD UREA NITROGEN 19 MG/DL (7-18); CALCIUM LEVEL 9.4 MG/DL (8.5-10.1); CARBON DIOXIDE LEVEL 31 MEQ/L (21-32); CHLORIDE LEVEL 104 MEQ/L (98-107); CHOLESTEROL LEVEL 184 MG/DL (<200); CHOLESTEROL RISK RATIO 3.538 (<5); CREATININE FOR GFR 0.67 MG/DL (0.55-1.30); GLOMERULAR FILTRATION RATE > 60.0 (>51); GLUCOSE, FASTING 101 MG/DL (70-100); HDL CHOLESTEROL 52 MG/DL (>40); IRON (FE) 94 UG/DL (50-170); LDL CHOLESTEROL 112 MG/DL (<100); NON-HDL-C 132 MG/DL; PERCENT SATURATION 24.4 % (13.2-45.0); POTASSIUM SERUM 4.4 MEQ/L (3.5-5.1); SODIUM LEVEL 141 MEQ/L (136-145); THYROID STIMULATING HORMONE 0.902 uIU/ML (0.358-3.740); TOTAL IRON BINDING CAPACITY 385 UG/DL (250-450); TRIGLYCERIDES LEVEL 100 MG/DL (<150)
[2020-05-18 14:00] LABS: TOTAL 25(OH) VITAMIN D 51.4 NG/ML (30.0-100.0)
== END ==
LOC: M LAB 12:03
PROVIDERS: ATTEND Family Medicine
DX: R53.83 Other fatigue (principal); I10 Essential (primary) hypertension; E11.9 Type 2 diabetes mellitus without complications

== ENCOUNTER 2021-04-23 13:33 | Emergency (ER) | payer BC, OTHER ==
[~2021-04-23] VITALS: Ht 165.1 cm; Wt 103.2 kg
[~2021-04-23 13:33] MED LIST changes: -CEFD1CAP8 PO; +CEFD300C41 PO; -CLIN150C15 PO; +CLIN150C17 PO; -DICY20TA11; +DICY20TA20; +ERGO500029; -VITA50005
[2021-04-23] MEDS ORDERED: CLINDAMYCIN 150MG CAPSULE PO ONE (16:45)
[2021-04-23] MEDS ORDERED: predniSONE 20 MG TAB PO ONE (16:45)
[2021-04-23] MEDS ORDERED: CLEO300C2 PO (16:58)
[2021-04-23] MEDS ORDERED: PRED20TA PO (16:58)
[2021-04-23] MEDS ORDERED: NEUR300C PO (16:58)
[2021-04-23] MEDS ORDERED: OLOP0.1D OP (16:58)
[2021-04-23 17:22] VITALS: BP 130/79
== END 2021-04-23 17:37 | disposition home or self-care (01) ==
LOC: M ED 13:33
DX: H05.229 Edema of unspecified orbit (principal); J02.9 Acute pharyngitis, unspecified; U07.1 COVID-19; Z86.718 Personal history of other venous thrombosis and embolism; Z98.84 Bariatric surgery status; Z88.0 Allergy status to penicillin; Z88.1 Allergy status to other antibiotic agents; Z88.2 Allergy status to sulfonamides; Z79.01 Long term (current) use of anticoagulants; Z79.899 Other long term (current) drug therapy
CPT/HCPCS: 93005; 99284; J7512

== ENCOUNTER → 2021-05-28 | Outpatient (CLI) | payer BC ==
[~2021-05-28] MED LIST changes: +CLEO300C2 PO; +NEUR300C PO; +OLOP5DRO16 OP; +PRED20TA PO
[2021-05-28 12:49] LABS: HEMATOCRIT 38.1 % (36.0-47.0); HEMOGLOBIN 12.2 g/dl (12.0-15.5); MEAN CORPUSCULAR HEMOGLOBIN 28.5 pg (27.0-33.0); PLATELET COUNT, AUTOMATED 336 10^3/uL (150-450); RED BLOOD COUNT 4.28 10^6/uL (4.00-5.40); WHITE BLOOD COUNT 6.7 10^3/uL (4.0-10.0)
[2021-05-28 13:16] LABS: ALBUMIN 3.4 GM/DL (3.2-5.2); ALT/SGPT 35 U/L (12-78); BILIRUBIN,TOTAL 0.3 MG/DL (0.2-1.0); BLOOD UREA NITROGEN 12 MG/DL (7-18); CALCIUM LEVEL 8.8 MG/DL (8.5-10.1); CARBON DIOXIDE LEVEL 31 MEQ/L (21-32); CHLORIDE LEVEL 107 MEQ/L (98-107); CHOLESTEROL LEVEL 169 MG/DL (<200); CHOLESTEROL RISK RATIO 4.121 (<5); CREATININE FOR GFR 0.71 MG/DL (0.55-1.30); GLOMERULAR FILTRATION RATE > 60.0 (>51); GLUCOSE, FASTING 114 MG/DL (70-100); HDL CHOLESTEROL 41 MG/DL (>40); LDL CHOLESTEROL 105 MG/DL (<100); NON-HDL-C 128 MG/DL; POTASSIUM SERUM 4.7 MEQ/L (3.5-5.1); SODIUM LEVEL 141 MEQ/L (136-145); THYROID STIMULATING HORMONE 0.886 uIU/ML (0.358-3.740); TOTAL PROTEIN 6.7 GM/DL (6.4-8.2); TRIGLYCERIDES LEVEL 113 MG/DL (<150)
[2021-05-28 14:06] LABS: TOTAL 25(OH) VITAMIN D 28.5 NG/ML (30.0-100.0)
[2021-05-28 14:34] LABS: HEMOGLOBIN A1c 6.7 %
== END ==
LOC: M LAB 11:18
PROVIDERS: ATTEND Family Medicine
DX: D64.9 Anemia, unspecified (principal); R53.83 Other fatigue

== ENCOUNTER → 2021-06-21 | Outpatient (CLI) | payer BC, OTHER ==
[~2021-06-21] MED LIST changes: -DICY20TA20; +DICY20TA20 PO; -ERGO500029; +ERGO500029 PO; +LISI5TAB11 PO; +PARO20TA4 PO
== END ==
LOC: M LABSMTC 09:14
PROVIDERS: ATTEND Anesthesiology
DX: Z01.812 Encounter for preprocedural laboratory examination (principal); Z11.52 Encounter for screening for COVID-19

== ENCOUNTER 2021-06-26 07:58 | Day surgery (SDC) | payer BC ==
[~2021-06-26] VITALS: Ht 167.6 cm; Wt 104.2 kg
[~2021-06-26 07:58] MED LIST changes: +NS 1,000 ML IV ONE
[2021-06-26] MEDS ORDERED: LIDOCAINE 2% 100MG/5ML SDV (FOR ANES.) As Ordered ONE (08:46)
[2021-06-26] MEDS ORDERED: propofoL 200 MG/20 ML VIAL As Ordered ONE (08:46)
[2021-06-26 09:55] VITALS: BP 115/65
== END 2021-06-26 09:55 | disposition home or self-care (01) ==
LOC: M OPP 07:58
PROVIDERS: ATTEND Internal Medicine Gastroenterology
DX: K64.0 First degree hemorrhoids (principal); R10.30 Lower abdominal pain, unspecified; R19.4 Change in bowel habit; Z79.899 Other long term (current) drug therapy; Z88.0 Allergy status to penicillin; Z88.1 Allergy status to other antibiotic agents; Z88.2 Allergy status to sulfonamides; Z86.718 Personal history of other venous thrombosis and embolism; Z86.16 Personal history of COVID-19; Z98.84 Bariatric surgery status; Z90.49 Acquired absence of other specified parts of digestive tract

== ENCOUNTER 2021-07-03 08:54 | Emergency (ER) | payer BC ==
[~2021-07-03] VITALS: Ht 167.6 cm; Wt 104.5 kg
[~2021-07-03 08:54] MED LIST changes: -ACET1TAB16 PO; +ACET300T48 PO; -NS 1,000 ML IV ONE
[2021-07-03 13:58] VITALS: BP 144/77
== END 2021-07-03 14:06 | disposition home or self-care (01) ==
LOC: M ED 08:54
DX: I83.819 Varicose veins of unspecified lower extremity with pain (principal); Z79.899 Other long term (current) drug therapy; Z79.01 Long term (current) use of anticoagulants; Z88.0 Allergy status to penicillin; Z88.2 Allergy status to sulfonamides

== ENCOUNTER → 2021-09-24 | Outpatient (REF) | payer BC ==
[~2021-09-24] MED LIST changes: -TRIA37.53 OR; +TRIA37.577 OR
== END ==
LOC: M LAB REF 15:46
PROVIDERS: ATTEND Surgery
DX: L72.9 Follicular cyst of the skin and subcutaneous tissue, unspecified (principal); L72.0 Epidermal cyst

== ENCOUNTER → 2022-03-27 | Outpatient (CLI) | payer BC ==
[2022-03-27 13:09] LABS: HEMATOCRIT 38.7 % (36.0-47.0); HEMOGLOBIN 12.4 g/dl (12.0-15.5); MEAN CORPUSCULAR HEMOGLOBIN 28.3 pg (27.0-33.0); MEAN CORPUSCULAR VOLUME 88.4 fl (80.0-96.0); PLATELET COUNT, AUTOMATED 331 10^3/uL (150-450); RED BLOOD COUNT 4.38 10^6/uL (4.00-5.40); WHITE BLOOD COUNT 5.7 10^3/uL (4.0-10.0)
[2022-03-27 13:46] LABS: ALBUMIN 3.5 G/DL (3.2-5.2); ALKALINE PHOSPHATASE 89 U/L (46-116); ALT/SGPT 48 U/L (7.0-40); AST/SGOT 42 U/L (<34); BILIRUBIN,TOTAL 0.4 MG/DL (0.3-1.2); BLOOD UREA NITROGEN 14 MG/DL (9-23); CARBON DIOXIDE LEVEL 28 MMOL/L (20-31); CHLORIDE LEVEL 106 MMOL/L (98-107); CHOLESTEROL LEVEL 165 MG/DL (<200); CHOLESTEROL RISK RATIO 3.44 (<5); CREATININE FOR GFR 0.67 MG/DL (0.55-1.30); GLOMERULAR FILTRATION RATE > 60.0 (>51); GLUCOSE, FASTING 107 MG/DL (60-100); HDL CHOLESTEROL 47.9 MG/DL (>40); LDL CHOLESTEROL 98.7 MG/DL (<100); NON-HDL-C 117 MG/DL; POTASSIUM SERUM 4.3 MMOL/L (3.5-5.1); SODIUM LEVEL 141 MMOL/L (136-145); TOTAL PROTEIN 6.8 G/DL (5.7-8.2); TRIGLYCERIDES LEVEL 92 MG/DL (<150)
[2022-03-27 13:48] LABS: TOTAL 25(OH) VITAMIN D 54.1 NG/ML (20.0-100.0)
== END ==
LOC: M LAB 11:39
PROVIDERS: ATTEND Family Medicine
DX: D64.9 Anemia, unspecified (principal); R53.83 Other fatigue

== ENCOUNTER → 2022-05-30 | Outpatient (CLI) | payer BC | LOC: M RAD 08:01 | PROVIDERS: ATTEND Family Medicine | DX: K80.00 Calculus of gallbladder with acute cholecystitis without obstruction (principal); K76.0 Fatty (change of) liver, not elsewhere classified; N28.1 Cyst of kidney, acquired ==

== ENCOUNTER → 2022-06-25 | Outpatient (CLI) | payer BC ==
[~2022-06-25] MED LIST changes: +E-Z-GAS II EFFERVESCENT PACKET (SODIUM BICARB./CITRIC ACID/SIMETHICONE) As Ordered ONE; +E-Z-HD 98% w/w 340GM SUSP BTL As Ordered ONE; +E-Z-PAQUE 96% w/w SUSP 176GM BTL As Ordered ONE
== END ==
LOC: M RAD 09:58
PROVIDERS: ATTEND Surgery
DX: R10.84 Generalized abdominal pain (principal); K44.9 Diaphragmatic hernia without obstruction or gangrene

== ENCOUNTER → 2022-07-30 | Day surgery (SDC) | payer BC ==
[~2022-07-30] VITALS: Ht 167.6 cm; Wt 129.6 kg
[~2022-07-30] MED LIST changes: +DICY10CA13 PO; -E-Z-GAS II EFFERVESCENT PACKET (SODIUM BICARB./CITRIC ACID/SIMETHICONE) As Ordered ONE; -E-Z-HD 98% w/w 340GM SUSP BTL As Ordered ONE; -E-Z-PAQUE 96% w/w SUSP 176GM BTL As Ordered ONE; +HYDR-3363 PO; +INFL10VL IV; +LIDOCAINE 2% 100MG/5ML SDV (FOR ANES.) As Ordered ONE; +NORT10CA2 PO; +NS 1,000 ML IV ONE; -OLOP5DRO16 OP; +OLOP5DRO17 OP; +PANT40TA29 PO; +PARO20TA3 PO; +ROPI1TAB3 PO; +XIFA550T PO; +fentaNYL 100 MCG/2 ML INJECTION As Ordered ONE; +propofoL 200 MG/20 ML VIAL As Ordered ONE
[2022-07-30 09:06] VITALS: BP 131/76
== END | disposition home or self-care (01) ==
LOC: M OPP 07:15
PROVIDERS: ATTEND Surgery
DX: K44.9 Diaphragmatic hernia without obstruction or gangrene (principal); R10.13 Epigastric pain; R11.2 Nausea with vomiting, unspecified; Z98.84 Bariatric surgery status; K58.9 Irritable bowel syndrome, unspecified; K21.9 Gastro-esophageal reflux disease without esophagitis; F41.9 Anxiety disorder, unspecified; Z86.718 Personal history of other venous thrombosis and embolism; Z88.0 Allergy status to penicillin; Z88.1 Allergy status to other antibiotic agents; Z88.2 Allergy status to sulfonamides; Z88.8 Allergy status to other drugs, medicaments and biological substances; Z79.01 Long term (current) use of anticoagulants; Z79.899 Other long term (current) drug therapy
CPT/HCPCS: 43235; J3010

== ENCOUNTER → 2022-09-23 | Outpatient (CLI) | payer BC ==
[~2022-09-23] MED LIST changes: -LIDOCAINE 2% 100MG/5ML SDV (FOR ANES.) As Ordered ONE; -NS 1,000 ML IV ONE; -fentaNYL 100 MCG/2 ML INJECTION As Ordered ONE; -propofoL 200 MG/20 ML VIAL As Ordered ONE
[2022-09-23 10:47] LABS: BASO # 0.1 10^3/uL (0.0-0.2); BASO % 1.4 % (0.0-1.0); EOS # 0.2 10^3/uL (0.0-0.5); EOS % 2.7 % (0.0-3.0); HEMATOCRIT 36.4 % (36.0-47.0); HEMOGLOBIN 11.9 g/dl (12.0-15.5); LYMPH # 1.7 10^3/uL (1.5-5.0); LYMPH % 30.8 % (24.0-44.0); MEAN CORPUSCULAR HEMOGLOBIN 28.8 pg (27.0-33.0); MEAN CORPUSCULAR HGB CONC 32.7 g/dl (32.0-36.5); MEAN CORPUSCULAR VOLUME 88.1 fl (80.0-96.0); MONO # 0.5 10^3/uL (0.0-0.8); MONO % 9.7 % (2.0-8.0); NEUTROPHILS # 3.1 10^3/uL (1.5-8.5); NEUTROPHILS % 55.2 % (36.0-66.0); PLATELET COUNT, AUTOMATED 415 10^3/uL (150-450); RED BLOOD COUNT 4.13 10^6/uL (4.00-5.40); WHITE BLOOD COUNT 5.6 10^3/uL (4.0-10.0)
[2022-09-23 10:51] LABS: HEMATOCRIT 36.4 % (36.0-47.0)
[2022-09-23 11:40] LABS: HEMOGLOBIN A1c 6.6 % (4.0-6.0)
[2022-09-23 11:42] LABS: ALBUMIN 3.5 G/DL (3.2-5.2); ALKALINE PHOSPHATASE 90 U/L (46-116); ALT/SGPT 26 U/L (7.0-40); AST/SGOT 20 U/L (<34); BILIRUBIN,TOTAL 0.4 MG/DL (0.3-1.2); BLOOD UREA NITROGEN 10 MG/DL (9-23); CALCIUM LEVEL 8.7 MG/DL (8.5-10.1); CARBON DIOXIDE LEVEL 27 MMOL/L (20-31); CHLORIDE LEVEL 105 MMOL/L (98-107); CREATININE FOR GFR 0.67 MG/DL (0.55-1.30); FERRITIN 18.9 NG/ML (7.3-270.7); GLOMERULAR FILTRATION RATE > 60.0 (>51); GLUCOSE, FASTING 240 MG/DL (60-100); IRON (FE) 53 UG/DL (50-170); MAGNESIUM LEVEL 1.9 MG/DL (1.8-2.4); PERCENT SATURATION 14.1 % (13.2-45.0); PHOSPHORUS LEVEL 3.5 MG/DL (2.5-4.9); POTASSIUM SERUM 4.1 MMOL/L (3.5-5.1); SODIUM LEVEL 138 MMOL/L (136-145); TOTAL 25(OH) VITAMIN D 36.3 NG/ML (20.0-100.0); TOTAL IRON BINDING CAPACITY 376 UG/DL (250-425); TOTAL PROTEIN 6.8 G/DL (5.7-8.2); VITAMIN B12 LEVEL 412 PG/ML (211-911)
== END ==
LOC: M LAB 10:22
PROVIDERS: ATTEND Physician Assistant Surgical
DX: K91.2 Postsurgical malabsorption, not elsewhere classified (principal); Z98.84 Bariatric surgery status; E55.9 Vitamin D deficiency, unspecified; Z86.39 Personal history of other endocrine, nutritional and metabolic disease

== ENCOUNTER 2023-01-13 22:13 | Observation (INO) | payer BC, OTHER ==
[~2023-01-13] VITALS: Ht 167.6 cm; Wt 100.0 kg
[~2023-01-13 22:13] MED LIST changes: -CEFD300C41 PO; +CEFD300C42 PO; +DICY-61 PO; -DICY10CA13 PO; -ROPI1TAB3 PO; +ROPI1TAB73 PO
[2023-01-13] MEDS ORDERED: MORPHINE 4 MG/ML 1ML VIAL IV ONE (22:45)
[2023-01-13 23:10] LABS: BASO # 0.1 10^3/uL (0.0-0.2); EOS # 0.1 10^3/uL (0.0-0.5); EOS % 2.1 % (0.0-3.0); HEMOGLOBIN 11.1 g/dl (12.0-15.5); LYMPH # 2.5 10^3/uL (1.5-5.0); LYMPH % 37.4 % (24.0-44.0); MEAN CORPUSCULAR HEMOGLOBIN 27.8 pg (27.0-33.0); MEAN CORPUSCULAR HGB CONC 32.6 g/dl (32.0-36.5); MEAN CORPUSCULAR VOLUME 85.2 fl (80.0-96.0); MONO # 0.9 10^3/uL (0.0-0.8); MONO % 12.6 % (2.0-8.0); NEUTROPHILS # 3.1 10^3/uL (1.5-8.5); NEUTROPHILS % 46.6 % (36.0-66.0); PLATELET COUNT, AUTOMATED 333 10^3/uL (150-450); RED BLOOD COUNT 3.99 10^6/uL (4.00-5.40); WHITE BLOOD COUNT 6.7 10^3/uL (4.0-10.0)
[2023-01-13 23:29] LABS: BLOOD UREA NITROGEN 17 MG/DL (9-23); CALCIUM LEVEL 8.5 MG/DL (8.5-10.1); CARBON DIOXIDE LEVEL 27 MMOL/L (20-31); CHLORIDE LEVEL 106 MMOL/L (98-107); CREATININE FOR GFR 0.67 MG/DL (0.55-1.30); GLOMERULAR FILTRATION RATE > 60.0 (>51); GLUCOSE, FASTING 121 MG/DL (60-100); SODIUM LEVEL 140 MMOL/L (136-145)
[2023-01-13] MEDS ORDERED: PERCOCET 5MG/325MG TAB PO ONE (23:45)
[2023-01-14] VITALS (12 sets, daily range): BP systolic 95–143; BP diastolic 53–81; TEMP 97.7–97.9; O2SAT 95–99
[2023-01-14] MEDS ORDERED: diazePAM 10MG/2ML SYRINGE IM ONE (00:35)
[2023-01-14 02:08] LABS: RSV AMPLIFICATION NEGATIVE (NEGATIVE)
[2023-01-14] MEDS ORDERED: ONDANSETRON 4MG 2ML VIAL IV PRN (05:15)
[2023-01-14] MEDS ORDERED: HYDROMORPHONE HCL 0.5 MG/ 0.5 ML SYRINGE IV PRN ×3 (05:15→05:20)
[2023-01-14] MEDS ORDERED: NORCO, ANEXSIA 5/325MG TABLET (HYDROcodone/ACETAMINOPHEN) PO PRN (05:15)
[2023-01-14] MEDS ORDERED: HYDR1CAP25 PO (05:36)
[2023-01-14] MEDS ORDERED: VITMTA PO (05:36)
[2023-01-14] MEDS ORDERED: MED REC IN PROGRESS XX SCH (05:40)
[2023-01-14] MEDS ORDERED: MORPHINE 4 MG/ML 1ML VIAL IV PRN (06:55)
[2023-01-14] MEDS ORDERED: KETOROLAC 30 MG/ML 1ML VIAL IV PRN (06:55)
[2023-01-14] MEDS ORDERED: oxyCODONE 5MG TAB PO PRN ×2 (06:55)
[2023-01-14] MEDS: ACETAMINOPHEN 500 MG TAB PO SCH ×3 (07:52→17:11)
[2023-01-14] MEDS: KETOROLAC 30 MG/ML 1ML VIAL IV PRN ×2 (07:52→13:56)
[2023-01-14] MEDS ORDERED: LIDOCAINE 5% (LIDODERM) PATCH TD ONE (08:10)
[2023-01-14] MEDS: METAMUCIL (PSYLLIUM) PACKET PO SCH ×2 (08:54→20:45)
[2023-01-14] MEDS: MIRALAX *UNIT DOSE* 17GM PACKET PO SCH ×2 (08:54→20:45)
[2023-01-14] MEDS: SENOKOT S TAB PO SCH ×2 (08:54→20:46)
[2023-01-14] MEDS: GABAPENTIN 100 MG CAP PO SCH ×3 (09:00→20:46)
[2023-01-14] MEDS: PARoxetine 20MG TABLET PO SCH ×2 (09:00→20:46)
[2023-01-14] MEDS: lisinopriL 5 MG TAB PO SCH (09:00)
[2023-01-14] MEDS: DICLOFENAC EPOLAMINE 1.3% PATCH TOP SCH ×2 (09:00→20:45)
[2023-01-14] MEDS: PANTOPRAZOLE 40MG TAB (PROTONIX) PO SCH (09:00)
[2023-01-14] MEDS: APIXABAN 5 MG TAB (ELIQUIS) PO SCH ×2 (09:00→20:46)
[2023-01-14] MEDS: CYCLOBENZAPRINE 10MG TABLET PO SCH ×3 (09:41→20:46)
[2023-01-14] MEDS ORDERED: INFL100I IV (10:52)
[2023-01-14] MEDS ORDERED: HOME MED LIST COMPLETE! XX SCH (10:55)
[2023-01-14] MEDS: MULTIVITAMINS/MINERALS THERAP 1 TAB PO SCH (13:56)
[2023-01-14] MEDS ORDERED: rOPINIRole 1MG TAB PO SCH (21:00)
[2023-01-15] MEDS: ACETAMINOPHEN 500 MG TAB PO SCH ×3 (00:13→12:38)
[2023-01-15 06:27] VITALS: BP 116/63; TEMP 96.4; O2SAT 98
[2023-01-15 08:57] VITALS: BP 116/63
[2023-01-15] MEDS: CYCLOBENZAPRINE 10MG TABLET PO SCH (08:57)
[2023-01-15] MEDS: lisinopriL 5 MG TAB PO SCH (08:57)
[2023-01-15] MEDS: DICLOFENAC EPOLAMINE 1.3% PATCH TOP SCH (08:57)
[2023-01-15] MEDS: APIXABAN 5 MG TAB (ELIQUIS) PO SCH (08:58)
[2023-01-15] MEDS: GABAPENTIN 100 MG CAP PO SCH (08:58)
[2023-01-15] MEDS: MIRALAX *UNIT DOSE* 17GM PACKET PO SCH (08:58)
[2023-01-15] MEDS: SENOKOT S TAB PO SCH (08:58)
[2023-01-15] MEDS: METAMUCIL (PSYLLIUM) PACKET PO SCH (08:58)
[2023-01-15] MEDS: PANTOPRAZOLE 40MG TAB (PROTONIX) PO SCH (08:58)
[2023-01-15] MEDS: PARoxetine 20MG TABLET PO SCH (09:01)
[2023-01-15 09:45] VITALS: BP 124/78; TEMP 97.5
[2023-01-15] MEDS ORDERED: CYCL10TA20 PO (10:11)
[2023-01-15] MEDS ORDERED: OXYC-517 PO ×2 (10:11→10:16)
[2023-01-15] MEDS ORDERED: GABA-1171 PO (10:11)
[2023-01-15] MEDS ORDERED: ACET-683 PO (10:11)
[2023-01-15] MEDS ORDERED: MIRA1POW3 PO (10:11)
[2023-01-15] MEDS ORDERED: IBUP-1114 PO (10:15)
[2023-01-15] MEDS ORDERED: DICL100G10 TOP (10:19)
[2023-01-15] MEDS ORDERED: LIDO1PAD TOP (10:19)
[2023-01-15] MEDS: MULTIVITAMINS/MINERALS THERAP 1 TAB PO SCH (12:00)
[2023-01-18] MEDS ORDERED: VITAMIN D 50,000 UNITS CAPSULE (ERGOCALCIFEROL 1.25MG) PO SCH (18:00)
== END 2023-01-15 14:10 | disposition home or self-care (01) ==
LOC: M ED 22:13 → EDBD 22:13 → M ED INP 22:14 → UNDOADMOB 01-14 05:13 → M ED INP 01-14 05:13 → ENRESERV 01-14 06:24 → M ED INP 01-14 07:30 → M MS5PR 01-14 07:30 → UNDODISOB 01-15 14:10
PROVIDERS: ADMIT Internal Medicine; ATTEND Internal Medicine
DX: M54.50 Low back pain, unspecified (principal); G89.29 Other chronic pain; W10.8XXA Fall (on) (from) other stairs and steps, initial encounter; Y92.098 Other place in other non-institutional residence as the place of occurrence of the external cause; Y93.01 Activity, walking, marching and hiking; F41.9 Anxiety disorder, unspecified; E66.9 Obesity, unspecified; Z86.718 Personal history of other venous thrombosis and embolism; K80.20 Calculus of gallbladder without cholecystitis without obstruction; G25.81 Restless legs syndrome; K21.9 Gastro-esophageal reflux disease without esophagitis; I10 Essential (primary) hypertension; Z98.84 Bariatric surgery status; Z79.899 Other long term (current) drug therapy; Z79.01 Long term (current) use of anticoagulants; Z88.0 Allergy status to penicillin; Z88.2 Allergy status to sulfonamides
CPT/HCPCS: 70450; 72125; 72128; 72131; 73502; 73564; 73610; 80048; 85025; 87631; 96372; 96374; 96375; 96376; 97116; 97161; 97165; 97530; 97535; 99285; J1170; J1885; J3360

== ENCOUNTER → 2023-02-18 | Outpatient (CLI) | payer OTHER ==
[~2023-02-18] MED LIST changes: +ACET-683 PO; +CYCL10TA20 PO; +DICL100G10 TOP; +GABA-1171 PO; +HYDR1CAP25 PO; +IBUP-1114 PO; +INFL100I IV; +LIDO1PAD TOP; +MIRA1POW3 PO; +OXYC-517 PO; +VITMTA PO
== END ==
LOC: M WHC 10:37
PROVIDERS: ATTEND Family Medicine
DX: Z12.31 Encounter for screening mammogram for malignant neoplasm of breast (principal)

== ENCOUNTER → 2023-05-20 | Outpatient (CLI) | payer OTHER ==
[~2023-05-20] MED LIST changes: +CEFD1CAP9 PO; -CEFD300C42 PO; -MIRA1POW3 PO; +MIRA33506 PO
[2023-05-20 11:53] LABS: HEMATOCRIT 35.9 % (36.0-47.0); HEMOGLOBIN 11.5 g/dl (12.0-15.5); MEAN CORPUSCULAR HEMOGLOBIN 26.9 pg (27.0-33.0); MEAN CORPUSCULAR VOLUME 83.9 fl (80.0-96.0); PLATELET COUNT, AUTOMATED 365 10^3/uL (150-450); RED BLOOD COUNT 4.28 10^6/uL (4.00-5.40); WHITE BLOOD COUNT 6.3 10^3/uL (4.0-10.0)
[2023-05-20 12:20] LABS: ALBUMIN 3.6 G/DL (3.2-5.2); ALKALINE PHOSPHATASE 100 U/L (46-116); ALT/SGPT 52 U/L (7.0-40); AST/SGOT 37 U/L (<34); BILIRUBIN,TOTAL 0.4 MG/DL (0.3-1.2); BLOOD UREA NITROGEN 10 MG/DL (9-23); CALCIUM LEVEL 9.1 MG/DL (8.5-10.1); CARBON DIOXIDE LEVEL 30 MMOL/L (20-31); CHLORIDE LEVEL 105 MMOL/L (98-107); CHOLESTEROL LEVEL 158 MG/DL (<200); CREATININE FOR GFR 0.66 MG/DL (0.55-1.30); GLOMERULAR FILTRATION RATE > 60.0 (>51); GLUCOSE, FASTING 118 MG/DL (60-100); HDL CHOLESTEROL 47.8 MG/DL (>40); LDL CHOLESTEROL 94.2 MG/DL (<100); NON-HDL-C 110.2 MG/DL; POTASSIUM SERUM 4.7 MMOL/L (3.5-5.1); SODIUM LEVEL 138 MMOL/L (136-145); TOTAL PROTEIN 6.9 G/DL (5.7-8.2); TRIGLYCERIDES LEVEL 80 MG/DL (<150)
[2023-05-20 12:22] LABS: THYROID STIMULATING HORMONE 1.099 uIU/ML (0.55-4.78)
[2023-05-20 12:43] LABS: HEMOGLOBIN A1c 7.1 % (4.0-6.0)
== END ==
LOC: M LAB 10:56
PROVIDERS: ATTEND Family Medicine
DX: I10 Essential (primary) hypertension (principal); R53.83 Other fatigue; E03.9 Hypothyroidism, unspecified

== ENCOUNTER → 2023-10-29 | Outpatient (CLI) | payer OTHER ==
[2023-10-29 12:36] LABS: HEMATOCRIT 34.8 % (36.0-47.0); MEAN CORPUSCULAR HEMOGLOBIN 26.6 pg (27.0-33.0); MEAN CORPUSCULAR HGB CONC 31.6 g/dl (32.0-36.5); MEAN CORPUSCULAR VOLUME 84.3 fl (80.0-96.0); PLATELET COUNT, AUTOMATED 344 10^3/uL (150-450); RED BLOOD COUNT 4.13 10^6/uL (4.00-5.40); WHITE BLOOD COUNT 9.1 10^3/uL (4.0-10.0)
[2023-10-29 13:13] LABS: ALBUMIN 3.9 G/DL (3.2-5.2); ALKALINE PHOSPHATASE 85 U/L (46-116); ALT/SGPT 37 U/L (7.0-40); AST/SGOT 27 U/L (<34); BILIRUBIN,TOTAL 0.4 MG/DL (0.3-1.2); BLOOD UREA NITROGEN 20 MG/DL (9-23); CALCIUM LEVEL 8.7 MG/DL (8.5-10.1); CARBON DIOXIDE LEVEL 28 MMOL/L (20-31); CHLORIDE LEVEL 108 MMOL/L (98-107); CHOLESTEROL LEVEL 153 MG/DL (<200); CHOLESTEROL RISK RATIO 3.66 (<5); CREATININE FOR GFR 0.83 MG/DL (0.55-1.30); GLOMERULAR FILTRATION RATE > 60.0 (>51); GLUCOSE, FASTING 94 MG/DL (60-100); HDL CHOLESTEROL 41.8 MG/DL (>40); LDL CHOLESTEROL 90.6 MG/DL (<100); NON-HDL-C 111.2 MG/DL; POTASSIUM SERUM 3.7 MMOL/L (3.5-5.1); SODIUM LEVEL 140 MMOL/L (136-145); TOTAL 25(OH) VITAMIN D 45.7 NG/ML (20.0-100.0); TOTAL PROTEIN 6.8 G/DL (5.7-8.2); TRIGLYCERIDES LEVEL 103 MG/DL (<150)
[2023-10-29 13:14] LABS: THYROID STIMULATING HORMONE 1.258 uIU/ML (0.55-4.78)
== END ==
LOC: M LAB 12:03
PROVIDERS: ATTEND Family Medicine
DX: I10 Essential (primary) hypertension (principal); E11.9 Type 2 diabetes mellitus without complications; R53.83 Other fatigue

== ENCOUNTER → 2024-04-27 | Outpatient (CLI) | payer OTHER ==
[~2024-04-27] MED LIST changes: +E-Z-GAS II EFFERVESCENT PACKET (SODIUM BICARB./CITRIC ACID/SIMETHICONE) As Ordered ONE; +E-Z-HD 98% w/w 340GM SUSP BTL As Ordered ONE; +E-Z-PAQUE 96% w/w SUSP 176GM BTL As Ordered ONE; +GABA-1490 OR; -GABA600T4 OR
[2024-04-27 12:40] LABS: HEMATOCRIT 36.3 % (36.0-47.0); HEMOGLOBIN 11.4 g/dl (12.0-15.5); MEAN CORPUSCULAR HEMOGLOBIN 25.4 pg (27.0-33.0); MEAN CORPUSCULAR HGB CONC 31.4 g/dl (32.0-36.5); PLATELET COUNT, AUTOMATED 356 10^3/uL (150-450); RED BLOOD COUNT 4.48 10^6/uL (4.00-5.40); WHITE BLOOD COUNT 6.7 10^3/uL (4.0-10.0)
[2024-04-27 12:52] LABS: HEMOGLOBIN A1c 7.7 % (4.0-6.0)
[2024-04-27 13:11] LABS: ALBUMIN 3.5 G/DL (3.2-5.2); ALKALINE PHOSPHATASE 114 U/L (35-104); ALT/SGPT 35 U/L (7.0-40); AST/SGOT 24 U/L (<34); BILIRUBIN,TOTAL 0.3 MG/DL (0.3-1.2); BLOOD UREA NITROGEN 11 MG/DL (9-23); CALCIUM LEVEL 8.7 MG/DL (8.5-10.1); CARBON DIOXIDE LEVEL 28 MMOL/L (20-31); CHLORIDE LEVEL 104 MMOL/L (98-107); CHOLESTEROL LEVEL 159 MG/DL (<200); CHOLESTEROL RISK RATIO 4.02 (<5); CREATININE FOR GFR 0.66 MG/DL (0.55-1.30); GLOMERULAR FILTRATION RATE > 60.0 (>51); GLUCOSE, FASTING 128 MG/DL (60-100); HDL CHOLESTEROL 39.5 MG/DL (>40); LDL CHOLESTEROL 100.5 MG/DL (<100); NON-HDL-C 119.5 MG/DL; POTASSIUM SERUM 4.4 MMOL/L (3.5-5.1); SODIUM LEVEL 145 MMOL/L (136-145); TRIGLYCERIDES LEVEL 95 MG/DL (<150)
[2024-04-27 13:12] LABS: THYROID STIMULATING HORMONE 0.852 uIU/ML (0.55-4.78); TOTAL 25(OH) VITAMIN D 51.5 NG/ML (20.0-100.0)
== END ==
LOC: M RAD 10:10
PROVIDERS: ATTEND Family Medicine
DX: R47.02 Dysphasia (principal); I10 Essential (primary) hypertension; E11.9 Type 2 diabetes mellitus without complications; R53.83 Other fatigue; E03.9 Hypothyroidism, unspecified

== ENCOUNTER → 2024-05-23 | Outpatient (REF) | payer OTHER ==
[~2024-05-23] MED LIST changes: -E-Z-GAS II EFFERVESCENT PACKET (SODIUM BICARB./CITRIC ACID/SIMETHICONE) As Ordered ONE; -E-Z-HD 98% w/w 340GM SUSP BTL As Ordered ONE; -E-Z-PAQUE 96% w/w SUSP 176GM BTL As Ordered ONE
== END ==
LOC: M SFHCWAGY 11:24
PROVIDERS: ATTEND Nurse Practitioner Family
DX: R87.610 Atypical squamous cells of undetermined significance on cytologic smear of cervix (ASC-US) (principal); N95.2 Postmenopausal atrophic vaginitis
CPT/HCPCS: 87624; G0123

== ENCOUNTER → 2024-05-23 | Outpatient (CLI) | payer OTHER | LOC: M WHC 14:14 | PROVIDERS: ATTEND Nurse Practitioner Family | DX: Z12.31 Encounter for screening mammogram for malignant neoplasm of breast (principal) ==

== ENCOUNTER → 2024-07-15 | Outpatient (CLI) | payer OTHER | LOC: M RAD 15:55 | PROVIDERS: ATTEND Nurse Practitioner Family | DX: R10.2 Pelvic and perineal pain (principal); D25.1 Intramural leiomyoma of uterus ==